=== PATIENT | female | born 1950 | race Caucasian/White ===

== ENCOUNTER 2019-05-19 11:08 | Inpatient (IN) ==
[2019-05-20 06:09] LABS: Basophils % 0.4 %; Eosinophils # 0.2 K/mcL (0.0-0.6); Eosinophils % 2.6 %; Hematocrit 37.8 % (35.3-44.9); Hemoglobin 12.6 g/dL (11.5-15.4); Immature Granulocytes % 0.6 % (0-4); Lymphocytes # 1.5 K/mcL (0.6-4.6); Lymphocytes % 17.2 %; Mean Corpuscular HGB Conc 33.3 g/dL (31.6-35.5); Mean Corpuscular Hemoglobin 29.1 pg (28.0-33.3); Mean Corpuscular Volume 87.3 fL (83.0-100.0); Mean Platelet Volume 10.4 fL (9.4-12.4); Monocytes # 0.6 K/mcL (0.0-1.3); Monocytes % 6.9 %; Neutrophils # 6.1 K/mcL (1.6-8.9); Platelet Count 236 K/mcL (140-400); Red Blood Count 4.33 M/mcL (3.82-4.97); Red Cell Distribution Width 14.2 % (11.5-14.5); Segmented Neutrophils % 72.3 %; White Blood Count 8.5 K/mcL (4.3-11.1)
[2019-05-20] MEDS: *HR* Heparin 5,000 UNIT/ML VIAL SQ SCH ×2 (06:17→17:09)
[2019-05-20 06:37] LABS: Alanine Aminotransferase 119 Units/L (7-52); Albumin 3.5 g/dL (3.5-5.7); Albumin/Globulin Ratio 1.3 (1.1-2.2); Alkaline Phosphatase 77 Units/L (34-104); Aspartate Amino Transferase 49 Units/L (13-39); BUN/Creatinine Ratio 36 (6-26); Blood Urea Nitrogen 26 mg/dL (8-23); Calcium 8.8 mg/dL (8.6-10.3); Carbon Dioxide 23 mEq/L (23-29); Chloride 110 mEq/L (98-107); Globulin 2.7 g/dL (2.4-3.5); Glucose 108 mg/dL (70-105); Magnesium 1.8 mg/dL (1.6-2.6); Osmolality,Calculated 295 (280-300); Potassium 3.8 mEq/L (3.5-5.1); Sodium 140 mEq/L (136-145); Total Protein 6.2 g/dL (6.4-8.9); eGFR For African Americans > 60 (> 60); eGFR For Non-African Americans > 60 (> 60)
[2019-05-20] MEDS: Aspirin 81 MG TAB.CHEW PO SCH (08:08)
[2019-05-20] MEDS: Lisinopril 20 MG TABLET PO SCH (08:09)
--- NOTE | 2019-05-20 12:45 | Internal Med History&Physical ---
Date of Encounter: 05/20/19 Time of Encounter: 12:42 Assessment and Plan (1) Right-sided cerebrovascular accident (CVA) Current visit: Yes Status: Acute No new neurological deficits. PT, OT and ST to eval and treat. Will follow progress. Follow up with neurologist as scheduled. (2) CAD (coronary artery disease) Current visit: Yes Status: Acute Stable. Denies chest pain. Continue current medication. Qualifiers: Coronary Disease-Associated Artery/Lesion type: unspecified vessel or lesion type [place] vs. transplanted heart: [place] heart Associated angina: without angina Qualified Code(s): I25.10 - Atherosclerotic heart disease of [place] coronary artery without angina pectoris (3) Hypertension Current visit: Yes Status: Acute Controlled with current medication. Monitor blood pressure. Qualifiers: Hypertension type: essential hypertension Qualified Code(s): I10 - Essential (primary) hypertension Internal Medicine - H&P: HPI Admitted From: Hospital to Hospital Transfer Plans for Post Hospital Care: Home History of present illness: Ms. Conklin is a 68 year old female admitted to inpatient rehab from [facility] status post right CVA. Patient has history of hypertension and CAD. Was only taking aspirin 81 mg and using a low-sodium diet. Was not taking medication due to insurance and cost issues. Patient developed left-sided weakness with facial droop and did not seek medical treatment until the next morning when she woke up and fell, hitting her face. Workup revealed and included right ICA and subsequent right MCA in right NOHEMY strokes. Patient denies any new neurological symptoms. Denies fever, chills, nausea vomiting or diarrhea. Denies shortness of breath or chest pain. Lives at home alone in a one-story house. His retired. Discussed code status. Patient wishes to remain a full code at this time. States she wants to think about the other options. Past Med Surg Social Fam HX - Past Medical History Medical history: coronary artery disease, CVA, hypertension, myocardial infarction Additional medical history: SD-2001 no stents. CVA-2019 Psychiatric history: no psych history - Past Surgical History Surgical History: no surgical history - Social History Smoking Status: Never smoker Smokeless Tobacco Status: No Alcohol use: none Drug use: none - Family History Mother Hx Family Cardiac Disorders: Yes Internal Medicine - H&P: Meds Aspirin 81 mg PO DAILY 05/19/19 [History] Atorvastatin [Lipitor] 40 mg PO HS 05/19/19 [History] Carvedilol 3.125 mg PO BID 05/19/19 [History] Lisinopril [Zestril] 40 mg PO DAILY 05/19/19 [History] Allergy/AdvReac Type Severity Reaction Status Date / Time codeine Allergy Hives Verified 05/19/19 17:44 All Systems PM: A 10-system review of systems was performed and is negative for pertinent findings except as documented above in the HPI. - Constitutional Constitutional: no chills, no fever(s), no night sweats - EENT Eyes: no change in vision, no discharge, no pain, no photophobia Ears: no ear discharge, no ear pain, no tinnitus Nose, mouth and throat: no dysphagia, no nasal discharge, no neck pain, no sore throat - Cardiovascular Cardiovascular ROS IM: no chest pain, no diaphoresis, no dyspnea, no lightheadedness, no palpitations, no syncope - Respiratory Respiratory: no cough, no dyspnea, no wheezing, no excessive phlegm production - Gastrointestinal Gastrointestinal: no abdominal pain, no diarrhea, no hematemesis, no hematochezia, no melena, no nausea, no vomiting - Genitourinary Genitourinary: no change in urinary stream, no dysuria, no flank pain, no hematuria - Musculoskeletal Musculoskeletal ROS IM: no numbness, no tingling - Integumentary Integumentary IM: no rash, no unusual bruising - Neurological Neurological ROS: no confusion, no convulsions, no focal weakness, no numbness, no tingling, no tremor(s) - Hematologic/Lymphatic Hematologic/Lymphatic: no easy bruising - Constitutional Vitals: Temp Pulse Resp BP Pulse Ox 98.1 F 60 16 125/61 96 05/20/19 08:00 05/20/19 08:00 05/20/19 08:00 05/20/19 08:00 05/20/19 08:00 General appearance: Present: A&O X 3, pleasant, no acute distress, answers questions appropriately Exam: left facial droop - Head Head exam: Present: atraumatic, normocephalic - Eye Eye exam: Present: PERRL, conjuntiva pink, sclera anicteric Pupils: Present: PERRL - Neck Neck exam general surgery: Present: supple, trachea midline. Absent: lymphadenopathy - Respiratory Respiratory exam: Present: CTAB. Absent: accessory muscle use, rales, rhonchi, wheezes - Cardiovascular Cardiovascular exam: Present: RRR, +S1, +S2. Absent: diastolic murmur, gallop, rubs, systolic murmur - GI/Abdominal GI/Abdominal exam: Present: normal bowel sounds, soft, no peritoneal signs. Absent: distended, tenderness - Extremities Exam Extremities exam: Present: warm, radial pulses palpable and symmetrical. Absent: calf tenderness, cyanotic, pedal edema Additional comments: left hemiplegia. does have slight movement through left quad - Neurological Exam Neurological exam: Present: CN II-XII intact, oriented X3, no focal deficits. Absent: pronater drift, facial droop, speech deficit - Skin Skin exam: Present: dry, intact Additional comments: Bruising around left side of cheek and eye. Internal Med - H&P Results - Labs CBC & Chem 7: 05/20/19 05:50 05/20/19 05:50 Labs: Short CBC 05/20/19 Range/Units 05:50 WBC 8.5 (4.3-11.1) K/mcL Hgb 12.6 (11.5-15.4) g/dL Hct 37.8 (35.3-44.9) % Plt Count 236 (140-400) K/mcL Neutrophils # 6.1 (1.6-8.9) K/mcL BMP 05/20/19 05:50 Sodium 140 Potassium 3.8 Chloride 110 H Carbon Dioxide 23 BUN 26 H Creatinine 0.73 Glucose 108 H Calcium 8.8 Liver Function 05/20/19 Range/Units 05:50 Total Bilirubin 1.0 (0.3-1.0) mg/dL AST 49 H (13-39) Units/L ALT 119 H (7-52) Units/L Alkaline Phosphatase 77 (34-104) Units/L Albumin 3.5 (3.5-5.7) g/dL
[2019-05-21] MEDS: *HR* Heparin 5,000 UNIT/ML VIAL SQ SCH ×2 (05:51→17:49)
[2019-05-21] MEDS: Aspirin 81 MG TAB.CHEW PO SCH (09:38)
[2019-05-21] MEDS: Lisinopril 20 MG TABLET PO SCH (09:38)
--- NOTE | 2019-05-21 11:04 | Internal Med Progress Note ---
Date of Encounter: 05/21/19 Time of Encounter: 11:01 - Assessment and plan (1) Right-sided cerebrovascular accident (CVA) Current Visit: Yes Status: Acute Assessment and plan: Patient continues to have left upper extremity remaining flaccid. Left lower extremity shows minimal movement on hip flexure but otherwise remains extremely weak. Right extremities with 5/5 muscle strength. Patient noted to have slight slurred speech during conversation. Continued slight left facial droop. She does participate in therapy and states that she feels she has had a slight increase in strength at left leg. We will continue with current plan of care. (2) CAD (coronary artery disease) Current Visit: Yes Status: Acute Assessment and plan: No acute issues. Patient continues with a slight systolic murmur. Denies any chest discomforts or palpitations. Vital signs are stable. We will continue with current plan of care and medications. Qualifiers: Coronary Disease-Associated Artery/Lesion type: unspecified vessel or lesion type [place] vs. transplanted heart: [place] heart Associated angina: without angina Qualified Code(s): I25.10 - Atherosclerotic heart disease of [place] coronary artery without angina pectoris (3) Hypertension Current Visit: Yes Status: Acute Assessment and plan: Vital signs remained stable. We will continue with a systolic blood pressure goal of less than 160. We will continue with current medications Qualifiers: Hypertension type: essential hypertension Qualified Code(s): I10 - Essential (primary) hypertension - Time Spent With Patient less than 15 minutes - Subjective Interval history: Vision appears relaxed currently denies any discomforts or shortness of breath. Patient states that she feels she has had a slight increase in strength to her left leg which she was able to demonstrate minimal movement approximately. Left upper extremity remains flaccid. Patient denies any other issues and states that therapy has been progressing well. - Constitutional Vitals: Temp Pulse Resp BP Pulse Ox 98.1 F 59 18 155/68 96 05/21/19 09:00 05/21/19 09:00 05/21/19 09:00 05/21/19 09:00 05/21/19 09:00 General appearance: Present: A&O X 3, pleasant, no acute distress, answers que stions appropriately - Head Head exam: Present: atraumatic, normocephalic - Eye Eye exam: Present: PERRL, conjuntiva pink, sclera anicteric Pupils: Present: PERRL - Neck Neck exam general surgery: Present: supple, trachea midline. Absent: lymphadenopathy - Respiratory Respiratory exam: Present: decreased breath sounds, CTAB. Absent: accessory muscle use, rales, rhonchi, wheezes - Cardiovascular Cardiovascular exam: Present: RRR, +S1, +S2, systolic murmur. Absent: diastolic murmur, gallop, rubs - GI/Abdominal GI/Abdominal exam: Present: normal bowel sounds, soft, no peritoneal signs. Absent: distended, tenderness - Extremities Exam Extremities exam: Present: warm, radial pulses palpable and symmetrical. Absent: calf tenderness, cyanotic, pedal edema - Neurological Exam Neurological exam: Present: CN II-XII intact, oriented X3, facial droop, speech deficit. Absent: pronater drift Additional comments: She continues with slight left facial droop. Patient's speech noted to be clear during conversation, but when patient became excited and spoke faster her speech became somewhat slurred. Tongue remains midline. Left upper extremity remains flaccid. Left lower extremity shows 2/5 muscle strength on hip flexure, but otherwise is flaccid. Right extremity showed 5/5 muscle strength. - Skin Skin exam: Present: dry, intact Internal Medicine: Result - Labs CBC & Chem 7: 05/20/19 05:50 05/20/19 05:50 Consult Discharge Plan - Plan Referrals: NONE,PCP [Primary Care Provider] -
--- NOTE | 2019-05-21 14:54 | Psychological Evaluation ---
Date of Encounter: 05/21/19 Time of Encounter: 11:00 History of Present Illness History of present illness: Ms. Conklin is a 68 year old female admitted to inpatient rehab from [facility] status post right CVA. Patient has history of hypertension and CAD. Was only taking aspirin 81 mg and using a low-sodium diet. Was not taking medication due to insurance and cost issues. Patient developed left-sided weakness with facial droop and did not seek medical treatment until the next morning when she woke up and fell, hitting her face. Workup revealed and included right ICA and subsequent right MCA in right NOHEMY strokes. Past Medical History - Psychiatric History Psychiatric history: Reports: no psych history Home Medications and Allergies Aspirin 81 mg PO DAILY 05/19/19 [History] Atorvastatin [Lipitor] 40 mg PO HS 05/19/19 [History] Carvedilol 3.125 mg PO BID 05/19/19 [History] Lisinopril [Zestril] 40 mg PO DAILY 05/19/19 [History] 3 Allergy/AdvReac Type Severity Reaction Status Date / Time codeine Allergy Hives Verified 05/19/19 17:44 Social History - Social History Social History: twice and lives alone in an apartment. Has 4 adult children and 10 grandchildren. 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 Attends latter day regularly and stated her kristin is important. Feels supported with freinds and family. She has noted cahnges in her memory; patience; and slowness of processing. High school graduate. 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 - Tobacco Use Smoking Status: Never smoker - Alcohol Use Alcohol Use: none - Drug Use Drug Use: none Cognitive/Emotional Assessment - Cognitive Ability Attention Span Ability: Unable to Sustain Attention Verbal Communication Ability: Conversational Style Level of Alertness: Alert Orientation: Person, Place, Time Speech Pattern: Appropriate Calculations: Able to spell WORLD backw Additional Findings: Able to repeat 3/3 words immediately and 0/3 after 5min and 2/3 with categorical cue; 4 digits forward and 3 digits backward; knew pres, previous pres, and governor. Unable to perform serial 3's. - Emotional Status Mood Description: Depressed Affect Description: Flat Coping Ability: Verbalizes positive coping skills Additional Findings: Working hard to keep positive but struggling with depression due to effects of CVA. Assessment & Plan - Diagnosis (1) Adjustment disorder with depressed mood - Prognosis Prognosis: Good - Treatment Plan Treatment Plan/Recommendations: Will develop and train coping strategies for mood and acceptance of changes since CVA. Treatment Frequency: weekly Next Session Date: 05/28/19 Procedures - Participants Therapy Participant: Patient - Session Time Session Start Time: 11:00 Session Stop Time: 11:30
[2019-05-22] MEDS: *HR* Heparin 5,000 UNIT/ML VIAL SQ SCH ×2 (05:09→17:36)
[2019-05-22] MEDS: Lisinopril 20 MG TABLET PO SCH (08:40)
[2019-05-22] MEDS: Aspirin 81 MG TAB.CHEW PO SCH (08:41)
--- NOTE | 2019-05-22 10:20 | Internal Med Progress Note ---
Date of Encounter: 05/22/19 Time of Encounter: 10:18 - Assessment and plan (1) Right-sided cerebrovascular accident (CVA) Current Visit: Yes Status: Acute Assessment and plan: Continue PT, OT and ST. Will follow progress. No new neurological deficits at this time. Follow up with neurologist as scheduled. (2) CAD (coronary artery disease) Current Visit: Yes Status: Acute Assessment and plan: Stable. Denies chest pain. Monitor. Continue current medication. Qualifiers: Coronary Disease-Associated Artery/Lesion type: unspecified vessel or lesion type [place] vs. transplanted heart: [place] heart Associated angina: without angina Qualified Code(s): I25.10 - Atherosclerotic heart disease of [place] coronary artery without angina pectoris (3) Hypertension Current Visit: Yes Status: Acute Assessment and plan: Controlled with current medication. Monitor blood pressure. Qualifiers: Hypertension type: essential hypertension Qualified Code(s): I10 - Essential (primary) hypertension - Time Spent With Patient less than 15 minutes - Subjective Interval history: Participating well with therapy. Trunk balance is improving. Maintaining appetite and hydration. Denies any new neurological deficits, fever, chills, nausea vomiting or diarrhea. Denies shortness of breath or chest pain. - Constitutional Vitals: Temp Pulse Resp BP Pulse Ox 97.5 F L 60 16 122/55 99 05/22/19 07:18 05/22/19 07:18 05/22/19 07:18 05/22/19 07:18 05/22/19 07:18 General appearance: Present: A&O X 3, pleasant, no acute distress, answers questions appropriately Exam: Left facial droop - Head Head exam: Present: atraumatic, normocephalic - Eye Eye exam: Present: PERRL, conjuntiva pink, sclera anicteric Pupils: Present: PERRL - Neck Neck exam general surgery: Present: supple, trachea midline. Absent: lymphadenopathy - Respiratory Respiratory exam: Present: CTAB. Absent: accessory muscle use, rales, rhonchi, wheezes - Cardiovascular Cardiovascular exam: Present: RRR, +S1, +S2. Absent: diastolic murmur, gallop, rubs, systolic murmur - GI/Abdominal GI/Abdominal exam: Present: normal bowel sounds, soft, no peritoneal signs. Absent: distended, tenderness - Extremities Exam Extremities exam: Present: warm, radial pulses palpable and symmetrical. Absent: calf tenderness, cyanotic, pedal edema Additional comments: Left hemiplegia - Neurological Exam Neurological exam: Present: CN II-XII intact, oriented X3, no focal deficits. Absent: pronater drift, facial droop, speech deficit - Skin Skin exam: Present: dry, intact Additional comments: Left facial bruising Internal Medicine: Result - Labs CBC & Chem 7: 05/20/19 05:50 05/20/19 05:50 Consult Discharge Plan - Plan Referrals: NONE,PCP [Primary Care Provider] -
[2019-05-22] MEDS: Acetaminophen 325 MG TABLET PO PRN (23:45)
[2019-05-23] MEDS: *HR* Heparin 5,000 UNIT/ML VIAL SQ SCH ×2 (05:13→16:59)
[2019-05-23] MEDS: Lisinopril 20 MG TABLET PO SCH (09:39)
[2019-05-23] MEDS: Aspirin 81 MG TAB.CHEW PO SCH (09:39)
--- NOTE | 2019-05-23 11:24 | Internal Med Progress Note ---
Date of Encounter: 05/23/19 Time of Encounter: 11:22 - Assessment and plan (1) Right-sided cerebrovascular accident (CVA) Current Visit: Yes Status: Acute Assessment and plan: Patient continues to have left upper extremity remaining flaccid. Left lower extremity shows minimal movement on hip flexure but patient increase in strength to her left distal leg. Right extremities with 5/5 muscle strength. Patient noted to have slight slurred speech during conversation. Continued slight left facial droop. She does participate in therapy and states that she feels she has had a slight increase in strength at left leg. We will continue with current plan of care. (2) CAD (coronary artery disease) Current Visit: Yes Status: Acute Assessment and plan: No acute issues. Patient continues with a slight systolic murmur. Denies any chest discomforts or palpitations. Vital signs are stable. We will continue with current plan of care and medications. Qualifiers: Coronary Disease-Associated Artery/Lesion type: unspecified vessel or lesion type [place] vs. transplanted heart: [place] heart Associated angina: without angina Qualified Code(s): I25.10 - Atherosclerotic heart disease of [place] coronary artery without angina pectoris (3) Hypertension Current Visit: Yes Status: Acute Assessment and plan: Vital signs remained stable. We will continue with a systolic blood pressure goal of less than 160. We will continue with current medications Qualifiers: Hypertension type: essential hypertension Qualified Code(s): I10 - Essential (primary) hypertension - Time Spent With Patient less than 15 minutes - Subjective Interval history: Vision appears relaxed currently denies any discomforts or shortness of breath. Patient states that she feels she has had a slight increase in strength to her l eft leg which she was able to demonstrate minimal movement approximately. Left upper extremity remains flaccid. Patient denies any other issues and states that therapy has been progressing well. - Constitutional Vitals: Temp Pulse Resp BP Pulse Ox 98.3 F 54 14 118/57 97 05/23/19 07:00 05/23/19 07:00 05/23/19 07:00 05/23/19 07:00 05/23/19 07:00 General appearance: Present: A&O X 3, pleasant, no acute distress, answers questions appropriately - Head Head exam: Present: atraumatic, normocephalic - Eye Eye exam: Present: PERRL, conjuntiva pink, sclera anicteric Pupils: Present: PERRL - Neck Neck exam general surgery: Present: supple, trachea midline. Absent: lymphadenopathy - Respiratory Respiratory exam: Present: CTAB. Absent: accessory muscle use, rales, rhonchi, wheezes - Cardiovascular Cardiovascular exam: Present: RRR, +S1, +S2. Absent: diastolic murmur, gallop, rubs, systolic murmur - GI/Abdominal GI/Abdominal exam: Present: normal bowel sounds, soft, no peritoneal signs. Absent: distended, tenderness - Extremities Exam Extremities exam: Present: warm, radial pulses palpable and symmetrical. Absent: calf tenderness, cyanotic, pedal edema - Neurological Exam Neurological exam: Present: CN II-XII intact, oriented X3, facial droop, speech deficit Additional comments: Patient continues to have left facial droop and dysarthria. Left upper extremity remains flaccid. Patient shows 2/5 muscle strength on left hip fle xure. Distally has 3/5 muscle strength, except for left dorsiflexion which is at 2/5. Right extremities at 5/5 muscle strength. - Skin Skin exam: Present: dry, intact Internal Medicine: Result - Labs CBC & Chem 7: 05/20/19 05:50 05/20/19 05:50 Consult Discharge Plan - Plan Referrals: NONE,PCP [Primary Care Provider] -
[2019-05-24 04:35] LABS: Bilirubin,Urine Negative (Negative); Blood,Urine Negative (Negative); Clarity,Urine Clear (Clear); Color,Urine Yellow (Yellow); Glucose,Urine (UA) Normal (Normal); Ketones,Urine Negative (Negative); Leukocyte Esterase,Urine Small (Negative); Nitrite,Urine Positive (Negative); Protein,Urine Trace mg/dL (Neg-Trace); Specific Gravity,Urine >= 1.030 (1.010-1.025); Urobilinogen,Urine Normal (Normal)
[2019-05-24 04:44] LABS: Bacteria,Urine Many per hpf (None-Few); Calcium Oxalate Crystals,Urine Present; RBC,Urine 0-3 per hpf (0-3); Squamous Epithelial Cell,Urine Few per lpf (None-Few); Transitional Epi Cells,Urine Few per hpf (None-Few); WBC,Urine 15-30 per hpf (0-3)
[2019-05-24] MEDS: *HR* Heparin 5,000 UNIT/ML VIAL SQ SCH ×2 (05:10→18:08)
[2019-05-24] MEDS: Aspirin 81 MG TAB.CHEW PO SCH (08:57)
[2019-05-24] MEDS: Lisinopril 20 MG TABLET PO SCH (08:57)
[2019-05-24] MEDS: Doxycycline 100 MG CAPSULE PO SCH ×2 (11:41→22:19)
--- NOTE | 2019-05-24 13:21 | Internal Med Progress Note ---
Date of Encounter: 05/24/19 Time of Encounter: 14:50 - Subjective Interval history: dd - Assessment and plan (1) Right-sided cerebrovascular accident (CVA) Current Visit: Yes Status: Acute Assessment and plan: Patient continues to have left upper extremity remaining flaccid due to CVA. L eft lower extremity shows minimal movement on hip flexure but patient increase in strength to her left distal leg. Right extremities with 5/5 muscle strength. Patient noted to have slight slurred speech during conversation. Continued slight left facial droop. She does participate in therapy and states that she feels she has had a slight increase in strength at left leg. We will continue with current plan of care and therapy. (2) CAD (coronary artery disease) Current Visit: Yes Status: Acute Assessment and plan: No acute issues. Patient continues with a slight systolic murmur. Denies any chest discomforts or palpitations. Vital signs are stable. We will continue with current plan of care and medications. Qualifiers: Coronary Disease-Associated Artery/Lesion type: unspecified vessel or lesion type [place] vs. transplanted heart: [place] heart Associated angina: without angina Qualified Code(s): I25.10 - Atherosclerotic heart disease of [place] coronary artery without angina pectoris (3) Hypertension Current Visit: Yes Status: Acute Assessment and plan: Vital signs remained stable. We will continue with a systolic blood pressure goal of less than 160. We will continue with current medications Qualifiers: Hypertension type: essential hypertension Qualified Code(s): I10 - Essential (primary) hypertension - Time Spent With Patient less than 15 minutes - Subjective Interval history: pt currently denies any chest pain or shortness of breath. Patient states that she feels she has had a slight increase in strength to her left leg which she was able to demonstrate minimal movement approximately. Left upper extremity remains flaccid. Patient denies any other issues and states that therapy has been progressing well. - EXAM General appearance: Present: A&O X 3, pleasant, no acute distress, appears comfortable at rest - Head Head exam: Present: atraumatic, normocephalic - Eye Eye exam: Present: PERRL, conjuntiva pink, sclera anicteric Pupils: Present: PERRL - Neck Neck exam general surgery: Present: supple, trachea midline. Absent: lymphadenopathy - Respiratory Respiratory exam: Present: CTAB. Absent: accessory muscle use, rales, rhonchi, wheezes - Cardiovascular Cardiovascular exam: Present: RRR, +S1, +S2. Absent: diastolic murmur, gallop, rubs, systolic murmur - GI/Abdominal GI/Abdominal exam: Present: normal bowel sounds, soft, no peritoneal signs. Absent: distended, tenderness - Extremities Exam Extremities exam: Present: warm, radial pulses palpable and symmetrical. Absent: calf tenderness, cyanotic, pedal edema - Neurological Exam Neurological exam: Present: CN II-XII intact, oriented X3, facial droop, speech deficit Additional comments: Patient continues to have left facial droop and dysarthria. Left upper extremity remains flaccid. Patient shows 2/5 muscle strength on left hip flexure. Distally has 3/5 muscle strength, except for left dorsiflexion which is at 2/5. Right extremities at 5/5 muscle strength. - Skin Skin exam: Present: dry, intact - Constitutional Vitals: Temp Pulse Resp BP Pulse Ox 98.6 F 61 14 130/76 96 05/24/19 08:51 05/24/19 08:51 05/24/19 08:51 05/24/19 08:51 05/24/19 08:51 General appearance: Present: A&O X 3, pleasant, no acute distress, answers questions appropriately Internal Medicine: Result - Labs CBC & Chem 7: 05/26/19 05:40 05/26/19 05:40 Labs: Urine 05/24/19 Range/Units 01:15 Urine Color Yellow (Yellow) Urine Clarity Clear (Clear) Urine pH 6.0 (5.0-8.0) pH Units Ur Specific [place] >= 1.030 H (1.010-1.025) Urine Protein Trace (Neg-Trace) mg/dL Urine Glucose (UA) Normal (Normal) mg/dL Consult Discharge Plan - Plan Referrals: NONE,PCP [Primary Care Provider] -
[2019-05-24] MEDS: Acetaminophen 325 MG TABLET PO PRN (22:19)
[2019-05-25] MEDS: *HR* Heparin 5,000 UNIT/ML VIAL SQ SCH ×2 (05:44→20:35)
[2019-05-25] MEDS: Lisinopril 20 MG TABLET PO SCH (09:28)
[2019-05-25] MEDS: Aspirin 81 MG TAB.CHEW PO SCH (09:28)
[2019-05-25] MEDS: Doxycycline 100 MG CAPSULE PO SCH ×2 (09:29→20:36)
[2019-05-25] MEDS: Acetaminophen 325 MG TABLET PO PRN (20:36)
[2019-05-26] MEDS: *HR* Heparin 5,000 UNIT/ML VIAL SQ SCH ×2 (05:16→17:04)
[2019-05-26 05:59] LABS: Basophils % 0.4 %; Eosinophils # 0.3 K/mcL (0.0-0.6); Eosinophils % 3.8 %; Hematocrit 35.5 % (35.3-44.9); Hemoglobin 11.9 g/dL (11.5-15.4); Immature Granulocytes % 0.4 % (0-4); Lymphocytes # 1.3 K/mcL (0.6-4.6); Lymphocytes % 17.9 %; Mean Corpuscular HGB Conc 33.5 g/dL (31.6-35.5); Mean Corpuscular Hemoglobin 29.5 pg (28.0-33.3); Mean Corpuscular Volume 88.1 fL (83.0-100.0); Mean Platelet Volume 10.1 fL (9.4-12.4); Monocytes # 0.5 K/mcL (0.0-1.3); Neutrophils # 5.1 K/mcL (1.6-8.9); Platelet Count 231 K/mcL (140-400); Red Blood Count 4.03 M/mcL (3.82-4.97); Red Cell Distribution Width 14.3 % (11.5-14.5); Segmented Neutrophils % 70.5 %; White Blood Count 7.2 K/mcL (4.3-11.1)
[2019-05-26 06:12] LABS: BUN/Creatinine Ratio 33 (6-26); Blood Urea Nitrogen 22 mg/dL (8-23); Calcium 8.7 mg/dL (8.6-10.3); Carbon Dioxide 26 mEq/L (23-29); Chloride 109 mEq/L (98-107); Glucose 108 mg/dL (70-105); Magnesium 1.6 mg/dL (1.6-2.6); Osmolality,Calculated 296 (280-300); Potassium 3.8 mEq/L (3.5-5.1); Sodium 141 mEq/L (136-145); eGFR For African Americans > 60 (> 60); eGFR For Non-African Americans > 60 (> 60)
[2019-05-26] MEDS: Doxycycline 100 MG CAPSULE PO SCH ×2 (07:47→21:08)
[2019-05-26] MEDS: Aspirin 81 MG TAB.CHEW PO SCH (07:47)
[2019-05-26] MEDS: Lisinopril 20 MG TABLET PO SCH (07:47)
--- NOTE | 2019-05-26 10:41 | Internal Med Progress Note ---
Date of Encounter: 05/26/19 Time of Encounter: 10:39 - Assessment and plan (1) Right-sided cerebrovascular accident (CVA) Current Visit: Yes Status: Acute Assessment and plan: Patient continues to have left upper extremity remaining flaccid. Left lower extremity shows minimal movement on hip flexure but patient increase in strength to her left distal leg. Right extremities with 5/5 muscle strength. Patient noted to have slight slurred speech during conversation. Continued slight left facial droop. She does participate in therapy and states that she feels she has had a slight increase in strength at left leg. We will continue with current plan of care. (2) CAD (coronary artery disease) Current Visit: Yes Status: Acute Assessment and plan: No acute issues. Patient continues with a slight systolic murmur. Denies any chest discomforts or palpitations. Vital signs are stable. We will continue with current plan of care and medications. Qualifiers: Coronary Disease-Associated Artery/Lesion type: unspecified vessel or lesion type [place] vs. transplanted heart: [place] heart Associated angina: without angina Qualified Code(s): I25.10 - Atherosclerotic heart disease of [place] coronary artery without angina pectoris (3) Hypertension Current Visit: Yes Status: Acute Assessment and plan: Vital signs remained stable. We will continue with a systolic blood pressure goal of less than 160. We will continue with current medications Qualifiers: Hypertension type: essential hypertension Qualified Code(s): I10 - Essential (primary) hypertension (4) UTI (urinary tract infection) Current Visit: Yes Status: Acute Assessment and plan: No acute issues. Patient currently is afebrile. Cultures pending. Patient continues on doxycycline. Qualifiers: Urinary tract infection type: site unspecified Hematuria presence: without hematuria Qualified Code(s): N39.0 - Urinary tract infection, site not specified - Subjective Interval history: Vision appears relaxed currently denies any discomforts or shortness of breath. Patient states that she feels she has had a slight increase in strength to her left leg which she was able to demonstrate minimal movement approximately. Patient denies any other issues and states that therapy has been progressing well. - Constitutional Vitals: Temp Pulse Resp BP Pulse Ox 98.0 F 60 15 154/82 98 05/26/19 07:15 05/26/19 07:15 05/26/19 07:15 05/26/19 07:15 05/26/19 07:15 General appearance: Present: A&O X 3, pleasant, no acute distress, answers questions appropriately - Head Head exam: Present: atraumatic, normocephalic - Eye Eye exam: Present: PERRL, conjuntiva pink, sclera anicteric Pupils: Present: PERRL - Neck Neck exam general surgery: Present: supple, trachea midline. Absent: lymphadenopathy - Respiratory Respiratory exam: Present: CTAB. Absent: accessory muscle use, rales, rhonchi, wheezes - Cardiovascular Cardiovascular exam: Present: RRR, +S1, +S2. Absent: diastolic murmur, gallop, rubs, systolic murmur - GI/Abdominal GI/Abdominal exam: Present: normal bowel sounds, soft, no peritoneal signs. Absent: distended, tenderness - Extremities Exam Extremities exam: Present: warm, radial pulses palpable and symmetrical. Absent: calf tenderness, cyanotic, pedal edema - Neurological Exam Neurological exam: Present: CN II-XII intact, oriented X3, facial droop, speech deficit. Absent: pronater drift Additional comments: Patient continues with slight facial droop and dysarthria. Left upper extremity remains flaccid 0/1. Left lower extremity continues with 3+/5. Patient observed with knee flexion that was able to overcome gravity. Her extremities are 5/5 muscle strength - Skin Skin exam: Present: dry, intact Internal Medicine: Result - Labs CBC & Chem 7: 05/26/19 05:40 05/26/19 05:40 Labs: Short CBC 05/26/19 Range/Units 05:40 WBC 7.2 (4.3-11.1) K/mcL Hgb 11.9 (11.5-15.4) g/dL Hct 35.5 (35.3-44.9) % Plt Count 231 (140-400) K/mcL Neutrophils # 5.1 (1.6-8.9) K/mcL BMP 05/26/19 05:40 Sodium 141 Potassium 3.8 Chloride 109 H Carbon Dioxide 26 BUN 22 Creatinine 0.66 Glucose 108 H Calcium 8.7 Urine 05/24/19 Range/Units 01:15 Urine Color Yellow (Yellow) Urine Clarity Clear (Clear) Urine pH 6.0 (5.0-8.0) pH Units Ur Specific [place] >= 1.030 H (1.010-1.025) Urine Protein Trace (Neg-Trace) mg/dL Urine Glucose (UA) Normal (Normal) mg/dL Consult Discharge Plan - Plan Referrals: NONE,PCP [Primary Care Provider] -
--- NOTE | 2019-05-26 16:06 | Internal Med Progress Note ---
Date of Encounter: 05/25/19 Time of Encounter: 16:50 - Subjective Interval history: dd - Assessment and plan (1) Right-sided cerebrovascular accident (CVA) Current Visit: Yes Status: Acute Assessment and plan: Patient continues to have left upper extremity remaining flaccid due to CVA. L eft lower extremity shows minimal movement on hip flexure but patient increase in strength to her left distal leg. Right extremities with 5/5 muscle strength. Patient noted to have slight slurred speech during conversation. Continued slight left facial droop. She does participate in therapy and states that she feels she has had a slight increase in strength at left leg. We will continue with current plan of care and therapy. (2) CAD (coronary artery disease) Current Visit: Yes Status: Acute Assessment and plan: No acute issues. Patient continues with a slight systolic murmur. Denies any chest discomforts or palpitations. Vital signs are stable. We will continue with current plan of care and medications. Qualifiers: Coronary Disease-Associated Artery/Lesion type: unspecified vessel or lesion type [place] vs. transplanted heart: [place] heart Associated angina: without angina Qualified Code(s): I25.10 - Atherosclerotic heart disease of [place] coronary artery without angina pectoris (3) Hypertension Current Visit: Yes Status: Acute Assessment and plan: Vital signs remained stable. We will continue with a systolic blood pressure goal of less than 160. We will continue with current medications Qualifiers: Hypertension type: essential hypertension Qualified Code(s): I10 - Essential (primary) hypertension - Time Spent With Patient less than 15 minutes - Subjective Interval history: pt currently denies any chest pain or shortness of breath. Patient states that she feels she has had a slight increase in strength to her left leg which she was able to demonstrate minimal movement approximately. Left upper extremity remains flaccid. Patient denies any other issues and states that therapy helps - EXAM General appearance: Present: A&O X 3, pleasant, no acute distress, appears comfortable at rest - Head Head exam: Present: atraumatic, normocephalic - Eye Eye exam: Present: PERRL, conjuntiva pink, sclera anicteric Pupils: Present: PERRL - Neck Neck exam general surgery: Present: supple, trachea midline. Absent: lymphadenopathy - Respiratory Respiratory exam: Present: CTAB. Absent: accessory muscle use, rales, rhonchi, wheezes - Cardiovascular Cardiovascular exam: Present: RRR, +S1, +S2. Absent: diastolic murmur, gallop, rubs, systolic murmur - GI/Abdominal GI/Abdominal exam: Present: normal bowel sounds, soft, no peritoneal signs. Absent: distended, tenderness - Extremities Exam Extremities exam: Present: warm, radial pulses palpable and symmetrical. Absent: calf tenderness, cyanotic, pedal edema - Neurological Exam Neurological exam: Present: CN II-XII intact, oriented X3, facial droop, speech deficit Additional comments: Patient continues to have left facial droop and dysarthria. Left upper extremity remains flaccid. Patient shows 2/5 muscle strength on left hip flexure. Distally has 3/5 muscle strength, except for left dorsiflexion which is at 2/5. Right extremities at 5/5 muscle strength. - Skin Skin exam: Present: dry, intact - Constitutional Vitals: Temp Pulse Resp BP Pulse Ox 98.0 F 60 15 154/82 98 05/26/19 07:15 05/26/19 07:15 05/26/19 07:15 05/26/19 07:15 05/26/19 07:15 General appearance: Present: A&O X 3, pleasant, no acute distress, answers questions appropriately Internal Medicine: Result - Labs CBC & Chem 7: 05/26/19 05:40 05/26/19 05:40 Labs: Short CBC 05/26/19 Range/Units 05:40 WBC 7.2 (4.3-11.1) K/mcL Hgb 11.9 (11.5-15.4) g/dL Hct 35.5 (35.3-44.9) % Plt Count 231 (140-400) K/mcL Neutrophils # 5.1 (1.6-8.9) K/mcL BMP 05/26/19 05:40 Sodium 141 Potassium 3.8 Chloride 109 H Carbon Dioxide 26 BUN 22 Creatinine 0.66 Glucose 108 H Calcium 8.7 Consult Discharge Plan - Plan Referrals: NONE,PCP [Primary Care Provider] -
[2019-05-26] MEDS: Acetaminophen 325 MG TABLET PO PRN (21:08)
[2019-05-27] MEDS: *HR* Heparin 5,000 UNIT/ML VIAL SQ SCH ×2 (06:11→17:09)
[2019-05-27] MEDS: Doxycycline 100 MG CAPSULE PO SCH ×2 (08:20→20:56)
[2019-05-27] MEDS: Lisinopril 20 MG TABLET PO SCH (08:20)
[2019-05-27] MEDS: Aspirin 81 MG TAB.CHEW PO SCH (08:21)
--- NOTE | 2019-05-27 10:32 | Internal Med Progress Note ---
Date of Encounter: 05/27/19 Time of Encounter: 10:30 - Assessment and plan (1) Right-sided cerebrovascular accident (CVA) Current Visit: Yes Status: Acute Assessment and plan: Continue PT, OT and ST. Will follow progress. No new neurological deficits at this time. Follow up with neurologist as scheduled. (2) CAD (coronary artery disease) Current Visit: Yes Status: Acute Assessment and plan: Stable. Denies chest pain. Monitor. Continue current medication. Qualifiers: Coronary Disease-Associated Artery/Lesion type: unspecified vessel or lesion type [place] vs. transplanted heart: [place] heart Associated angina: without angina Qualified Code(s): I25.10 - Atherosclerotic heart disease of [place] coronary artery without angina pectoris (3) Hypertension Current Visit: Yes Status: Acute Assessment and plan: Controlled with current medication. Monitor blood pressure. Qualifiers: Hypertension type: essential hypertension Qualified Code(s): I10 - Essential (primary) hypertension (4) UTI (urinary tract infection) Current Visit: Yes Status: Acute Assessment and plan: denies urinary symptoms. continue atb, afebrile. Qualifiers: Urinary tract infection type: site unspecified Hematuria presence: without hematuria Qualified Code(s): N39.0 - Urinary tract infection, site not spe cified - Time Spent With Patient less than 15 minutes - Subjective Interval history: Participating well with therapy. has been working on standing frame. Trunk balance is improving. Maintaining appetite and hydration. Denies any new neurological deficits, fever, chills, nausea vomiting or diarrhea. Denies shortness of breath or chest pain. - Constitutional Vitals: Temp Pulse Resp BP Pulse Ox 98.0 F 59 15 150/71 97 05/27/19 08:01 05/27/19 08:01 05/27/19 08:01 05/27/19 08:01 05/27/19 08:01 General appearance: Present: A&O X 3, pleasant, no acute distress, answers questions appropriately Exam: left facial droop - Head Head exam: Present: atraumatic, normocephalic - Eye Eye exam: Present: PERRL, conjuntiva pink, sclera anicteric Pupils: Present: PERRL - Neck Neck exam general surgery: Present: supple, trachea midline. Absent: lymphadenopathy - Respiratory Respiratory exam: Present: CTAB. Absent: accessory muscle use, rales, rhonchi, wheezes - Cardiovascular Cardiovascular exam: Present: RRR, +S1, +S2. Absent: diastolic murmur, gallop, rubs, systolic murmur - GI/Abdominal GI/Abdominal exam: Present: normal bowel sounds, soft, no peritoneal signs. Absent: distended, tenderness - Extremities Exam Extremities exam: Present: warm, radial pulses palpable and symmetrical. Absent: calf tenderness, cyanotic, pedal edema Additional comments: LUE flaccid, LLL strength 2/5 - Neurological Exam Neurological exam: Present: CN II-XII intact, oriented X3, no focal deficits. Absent: pronater drift, facial droop, speech deficit - Skin Skin exam: Present: dry, intact Internal Medicine: Result - Labs CBC & Chem 7: 05/26/19 05:40 05/26/19 05:40 Consult Discharge Plan - Plan Referrals: NONE,PCP [Primary Care Provider] -
[2019-05-27] MEDS: Acetaminophen 325 MG TABLET PO PRN (20:56)
[2019-05-28] MEDS: *HR* Heparin 5,000 UNIT/ML VIAL SQ SCH ×2 (05:30→17:44)
[2019-05-28] MEDS: Lisinopril 20 MG TABLET PO SCH (09:25)
[2019-05-28] MEDS: Doxycycline 100 MG CAPSULE PO SCH ×2 (09:25→22:06)
[2019-05-28] MEDS: Aspirin 81 MG TAB.CHEW PO SCH (09:25)
[2019-05-28] MEDS: Acetaminophen 325 MG TABLET PO PRN ×2 (09:29→22:04)
--- NOTE | 2019-05-28 12:57 | Internal Med Progress Note ---
Date of Encounter: 05/28/19 Time of Encounter: 12:55 - Assessment and plan (1) Right-sided cerebrovascular accident (CVA) Current Visit: Yes Status: Acute Assessment and plan: Patient continues to have left upper extremity remaining flaccid. Left lower extremity shows minimal movement on hip flexure but patient increase in strength to her left distal leg. Right extremities with 5/5 muscle strength. Patient noted to have slight slurred speech during conversation. Continued slight left facial droop. She does participate in therapy and states that she feels she has had a slight increase in strength at left leg. Patient has complaint of left shoulder pain, which is likely secondary to the weight of her flaccid left arm. No deformity or obvious injury noted to the left shoulder. No tenderness on palpation. Have physical therapy evaluate her left shoulder. Pain increases patient may possibly need a sling for left arm. We will continue with current plan of care. (2) CAD (coronary artery disease) Current Visit: Yes Status: Acute Assessment and plan: No acute issues. Patient continues with a slight systolic murmur. Denies any chest discomforts or palpitations. Vital signs are stable. We will continue with current plan of care and medications. Qualifiers: Coronary Disease-Associated Artery/Lesion type: unspecified vessel or lesion type [place] vs. transplanted heart: [place] heart Associated angina: without angina Qualified Code(s): I25.10 - Atherosclerotic heart disease of [place] coronary artery without angina pectoris (3) Hypertension Current Visit: Yes Status: Acute Assessment and plan: Vital signs remained stable. We will continue with a systolic blood pressure goal of less than 160. We will continue with current medications Qualifiers: Hypertension type: essential hypertension Qualified Code(s): I10 - Essential (primary) hypertension (4) UTI (urinary tract infection) Current Visit: Yes Status: Acute Assessment and plan: No acute issues. Patient currently is afebrile. Cultures pending. Patient continues on doxycycline. Qualifiers: Urinary tract infection type: site unspecified Hematuria presence: without hematuria Qualified Code(s): N39.0 - Urinary tract infection, site not specified - Time Spent With Patient less than 15 minutes - Subjective Interval history: Vision appears relaxed currently denies any discomforts or shortness of breath. Patient states that she feels she has had a slight increase in strength to her left leg which she was able to demonstrate minimal movement approximately. Patient denies any other issues and states that therapy has been progressing well. Therapy today reports patient has had increased muscle tension to her left extremities making passive range of motion difficult. Patient has also complained of slight discomfort to her left shoulder, but denies any tenderness on palpation. - Constitutional Vitals: Temp Pulse Resp BP Pulse Ox 97.7 F 59 16 133/73 97 05/28/19 07:20 05/28/19 07:20 05/28/19 07:20 05/28/19 07:20 05/28/19 07:20 General appearance: Present: A&O X 3, pleasant, no acute distress, answers questions appropriately - Head Head exam: Present: atraumatic, normocephalic - Eye Eye exam: Present: PERRL, conjuntiva pink, sclera anicteric Pupils: Present: PERRL - Neck Neck exam general surgery: Present: supple, trachea midline. Absent: lymphadenopathy - Respiratory Respiratory exam: Present: CTAB. Absent: accessory muscle use, rales, rhonchi, wheezes - Cardiovascular Cardiovascular exam: Present: RRR, +S1, +S2. Absent: diastolic murmur, gallop, rubs, systolic murmur - GI/Abdominal GI/Abdominal exam: Present: normal bowel sounds, soft, no peritoneal signs. Absent: distended, tenderness - Extremities Exam Extremities exam: Present: warm, radial pulses palpable and symmetrical. Absent: calf tenderness, cyanotic, pedal edema Additional comments: Left shoulder shows no deformity or obvious injuries. No tenderness on palpation. No edema - Neurological Exam Neurological exam: Present: CN II-XII intact, oriented X3, facial droop, speech deficit. Absent: pronater drift Additional comments: Patient continues with left facial droop and dysarthria. Left upper extremity remains flaccid. Left lower extremity shows 3/5 muscle strength. Right extremities with 5/5 muscle strength. - Skin Skin exam: Present: dry, intact Internal Medicine: Result - Labs CBC & Chem 7: 05/26/19 05:40 05/26/19 05:40 Consult Discharge Plan - Plan Referrals: NONE,PCP [Primary Care Provider] -
--- NOTE | 2019-05-28 14:05 | Rehab Psychology Progress Note ---
Date of Encounter: 05/28/19 Time of Encounter: 11:00 Subjective - Patient Report Patient Report: Stated she had a rough night last night due to pain in her left shoulder. Feeling a little depressed. Working on focusing on one day at a time. - Symptoms Symptoms: Flat affect. Minimal eye contact. Objective - WHODAS Functional Impairment Concentration, Problem-solving, Communication: Mild Social Functioning: Mild - Comments Functional Status Comments: Expressed concerns about living independently due to mobility issues. Concerned with driving and discussed that was not going to occur for several months. - Mental Status Mental Status Changes: OX3 Assessment and Plan - Diagnosis (1) Adjustment disorder with depressed mood - Response to Treatment Response to Treatment: Improved - Prognosis Prognosis: Good - Treatment Plan Treatment Plan Recommendations: Continue Current Plan/Goals Next Session Date: 06/04/19 Procedures - Intervention Interventions: Cognitive/Behavioral Therapy - Modality Modality: Psychotherapy 30 minutes - Participants Therapy Participant: Patient - Session Time Session Start Time: 11:00 Session Stop Time: 11:30
[2019-05-28] MEDS: tiZANidine 4 MG TABLET PO PRN (22:08)
[2019-05-29] MEDS: *HR* Heparin 5,000 UNIT/ML VIAL SQ SCH ×2 (05:55→17:49)
[2019-05-29] MEDS: Aspirin 81 MG TAB.CHEW PO SCH (09:57)
[2019-05-29] MEDS: Lisinopril 20 MG TABLET PO SCH (09:57)
[2019-05-29] MEDS: tiZANidine 4 MG TABLET PO PRN ×2 (09:58→21:33)
[2019-05-29] MEDS: Doxycycline 100 MG CAPSULE PO SCH ×2 (09:58→21:33)
--- NOTE | 2019-05-29 11:24 | Internal Med Progress Note ---
Date of Encounter: 05/29/19 Time of Encounter: 11:22 - Assessment and plan (1) Right-sided cerebrovascular accident (CVA) Current Visit: Yes Status: Acute Assessment and plan: Patient continues to have left upper extremity remaining flaccid. Left lower extremity shows minimal movement on hip flexure but patient increase in strength to her left distal leg. Right extremities with 5/5 muscle strength. Patient noted to have slight slurred speech during conversation. Continued slight left facial droop. She does participate in therapy and states that she feels she has had a slight increase in strength at left leg. Patient has complaint of left shoulder pain, which is likely secondary to the weight of her flaccid left arm. No deformity or obvious injury noted to the left shoulder. No tenderness on palpation. Have physical therapy evaluate her left shoulder. Pain increases patient may possibly need a sling for left arm. We will continue with current plan of care. (2) CAD (coronary artery disease) Current Visit: Yes Status: Acute Assessment and plan: No acute issues. Patient continues with a slight systolic murmur. Denies any chest discomforts or palpitations. Vital signs are stable. We will continue with current plan of care and medications. Qualifiers: Coronary Disease-Associated Artery/Lesion type: unspecified vessel or lesion type [place] vs. transplanted heart: [place] heart Associated angina: without angina Qualified Code(s): I25.10 - Atherosclerotic heart disease of [place] coronary artery without angina pectoris (3) Hypertension Current Visit: Yes Status: Acute Assessment and plan: Vital signs remained stable. We will continue with a systolic blood pressure goal of less than 160. We will continue with current medications Qualifiers: Hypertension type: essential hypertension Qualified Code(s): I10 - Essential (primary) hypertension (4) UTI (urinary tract infection) Current Visit: Yes Status: Acute Assessment and plan: No acute issues. Patient currently is afebrile. Cultures pending. Patient continues on doxycycline. Qualifiers: Urinary tract infection type: site unspecified Hematuria presence: without hematuria Qualified Code(s): N39.0 - Urinary tract infection, site not specified - Time Spent With Patient less than 15 minutes - Subjective Interval history: Vision appears relaxed currently denies any discomforts or shortness of breath. Patient states that she feels she has had a slight increase in strength to her left leg which she was able to demonstrate minimal movement approximately. Patient denies any other issues and states that therapy has been progressing well. Therapy today reports patient has had increased muscle tension to her left extremities making passive range of motion difficult. Patient has also complained of slight discomfort to her left shoulder, but denies any tenderness on palpation. Patient states that her pain to her left shoulder has improved somewhat today - Constitutional Vitals: Temp Pulse Resp BP Pulse Ox 98.7 F 55 16 144/76 97 05/29/19 07:54 05/29/19 07:54 05/29/19 07:54 05/29/19 07:54 05/29/19 07:54 General appearance: Present: A&O X 3, pleasant, no acute distress, answers questions appropriately - Head Head exam: Present: atraumatic, normocephalic - Eye Eye exam: Present: PERRL, conjuntiva pink, sclera anicteric Pupils: Present: PERRL - Neck Neck exam general surgery: Present: supple, trachea midline. Absent: lymphadenopathy - Respiratory Respiratory exam: Present: CTAB. Absent: accessory muscle use, rales, rhonchi, wheezes - Cardiovascular Cardiovascular exam: Present: RRR, +S1, +S2. Absent: diastolic murmur, gallop, rubs, systolic murmur - GI/Abdominal GI/Abdominal exam: Present: normal bowel sounds, soft, no peritoneal signs. Absent: distended, tenderness - Extremities Exam Extremities exam: Present: warm, radial pulses palpable and symmetrical. Absent: calf tenderness, cyanotic, pedal edema Additional comments: Patient with complaints of pain to her left shoulder. No deformity or injury noted. Denies tenderness. - Neurological Exam Neurological exam: Present: CN II-XII intact, oriented X3, facial droop, speech deficit. Absent: pronater drift Additional comments: Patient continues with facial droop and dysarthria. Left upper extremity remains flaccid. Left lower extremity at 3/5 muscle strength. Right extremities at 5/5 muscle strength - Skin Skin exam: Present: dry, intact Internal Medicine: Result - Labs CBC & Chem 7: 05/26/19 05:40 05/26/19 05:40 Consult Discharge Plan - Plan Referrals: NONE,PCP [Primary Care Provider] -
[2019-05-29] MEDS: Mag Hydrox/Al Hydrox/Simeth 30 ML UDC PO PRN (14:39)
[2019-05-29] MEDS: Famotidine 20 MG TABLET PO SCH (21:34)
[2019-05-30] MEDS: *HR* Heparin 5,000 UNIT/ML VIAL SQ SCH ×2 (04:57→17:20)
[2019-05-30] MEDS: Doxycycline 100 MG CAPSULE PO SCH ×2 (08:03→21:44)
[2019-05-30] MEDS: Lisinopril 20 MG TABLET PO SCH (08:03)
[2019-05-30] MEDS: tiZANidine 4 MG TABLET PO PRN (08:03)
[2019-05-30] MEDS: Aspirin 81 MG TAB.CHEW PO SCH (08:03)
[2019-05-30] MEDS: Famotidine 20 MG TABLET PO SCH ×2 (08:04→21:44)
--- NOTE | 2019-05-30 11:13 | Internal Med Progress Note ---
Date of Encounter: 05/30/19 Time of Encounter: 11:10 - Assessment and plan (1) Right-sided cerebrovascular accident (CVA) Current Visit: Yes Status: Acute Assessment and plan: Patient continues to have left upper extremity remaining mostly flaccid, but noted muscle twitch. Left lower extremity shows minimal movement on hip flexure but patient increase in strength to her left distal leg. Right extremities with 5/5 muscle strength. Patient noted to have slight slurred speech during conversation. Continued slight left facial droop. She does participate in therapy and states that she feels she has had a slight increase in strength at left leg. Patient has complaint of left shoulder pain, which is likely secondary to the weight of her flaccid left arm. No deformity or obvious injury noted to the left shoulder. No tenderness on palpation. Have physical therapy evaluate her left shoulder. Pain increases patient may possibly need a sling for left arm. Patient was started on Zanaflex yesterday when necessary due to increased muscle tone on the left extremities, which has made therapy difficult. Minimal effect has been noted and will change her Zanaflex to a scheduled dose. We will continue with current plan of care. (2) CAD (coronary artery disease) Current Visit: Yes Status: Acute Assessment and plan: No acute issues. Patient continues with a slight systolic murmur. Denies any chest discomforts or palpitations. Vital signs are stable. We will continue with current plan of care and medications. Qualifiers: Coronary Disease-Associated Artery/Lesion type: unspecified vessel or lesion type [place] vs. transplanted heart: [place] heart Associated angina: without angina Qualified Code(s): I25.10 - Atherosclerotic heart disease of [place] coronary artery without angina pectoris (3) Hypertension Current Visit: Yes Status: Acute Assessment and plan: Vital signs remained stable. We will continue with a systolic blood pressure goal of less than 160. We will continue with current medications Qualifiers: Hypertension type: essential hypertension Qualified Code(s): I10 - Essential (primary) hypertension (4) UTI (urinary tract infection) Current Visit: Yes Status: Acute Assessment and plan: No acute issues. Patient currently is afebrile. Cultures pending. Patient continues on doxycycline. Qualifiers: Urinary tract infection type: site unspecified Hematuria presence: without hematuria Qualified Code(s): N39.0 - Urinary tract infection, site not spec ified - Time Spent With Patient less than 15 minutes - Subjective Interval history: Appears relaxed currently denies any discomforts or shortness of breath. Patient states that she feels she has had a slight increase in strength to her left leg which she was able to demonstrate minimal movement approximately. Patient denies any other issues and states that therapy has been progressing well. Therapy today reports patient continues with increased muscle tension to her left extremities making passive range of motion difficult. Started on Zanaflex yesterday prn, but has been ineffective. Patient has also complained of slight discomfort to her left shoulder, but denies any tenderness on palpation. Patient states that her pain to her left shoulder has improved somewhat today - Constitutional Vitals: Temp Pulse Resp BP Pulse Ox 98.4 F 62 15 152/65 94 05/30/19 10:11 05/30/19 10:11 05/30/19 10:11 05/30/19 10:11 05/30/19 10:11 General appearance: Present: A&O X 3, pleasant, no acute distress, answers questions appropriately - Head Head exam: Present: atraumatic, normocephalic - Eye Eye exam: Present: PERRL, conjuntiva pink, sclera anicteric Pupils: Present: PERRL - Neck Neck exam general surgery: Present: supple, trachea midline. Absent: lymphadenopathy - Respiratory Respiratory exam: Present: CTAB. Absent: accessory muscle use, rales, rhonchi, wheezes - Cardiovascular Cardiovascular exam: Present: RRR, +S1, +S2. Absent: diastolic murmur, gallop, rubs, systolic murmur - GI/Abdominal GI/Abdominal exam: Present: normal bowel sounds, soft, no peritoneal signs. Absent: distended, tenderness - Extremities Exam Extremities exam: Present: warm, radial pulses palpable and symmetrical. Absent: calf tenderness, cyanotic, pedal edema - Neurological Exam Neurological exam: Present: CN II-XII intact, oriented X3, facial droop, speech deficit. Absent: pronater drift Additional comments: Patient continues with left facial droop and dysarthria. Left upper extremity at 1/5 muscle strength. Left lower extremity and 3/5 muscle strength. Right extremities at 5/5 muscle strength. - Skin Skin exam: Present: dry, intact Internal Medicine: Result - Labs CBC & Chem 7: 05/26/19 05:40 05/26/19 05:40 Consult Discharge Plan - Plan Referrals: NONE,PCP [Primary Care Provider] -
[2019-05-30] MEDS ORDERED: tiZANidine 4 MG TABLET PO SCH (13:00)
[2019-05-30] MEDS: tiZANidine 4 MG TABLET PO SCH ×2 (15:00→21:44)
[2019-05-31] MEDS: *HR* Heparin 5,000 UNIT/ML VIAL SQ SCH ×2 (05:08→17:44)
[2019-05-31] MEDS: tiZANidine 4 MG TABLET PO SCH ×3 (08:43→22:04)
[2019-05-31] MEDS: Doxycycline 100 MG CAPSULE PO SCH ×2 (08:43→22:05)
[2019-05-31] MEDS: Aspirin 81 MG TAB.CHEW PO SCH (08:43)
[2019-05-31] MEDS: Lisinopril 20 MG TABLET PO SCH (08:43)
[2019-05-31] MEDS: Famotidine 20 MG TABLET PO SCH ×2 (08:44→22:04)
--- NOTE | 2019-05-31 10:20 | Internal Med Progress Note ---
Date of Encounter: 05/31/19 Time of Encounter: 10:18 - Assessment and plan (1) Right-sided cerebrovascular accident (CVA) Current Visit: Yes Status: Acute Assessment and plan: She is continuing therapy and progressing slowly. (2) CAD (coronary artery disease) Current Visit: Yes Status: Acute Assessment and plan: Stable, without signs or symptoms. Qualifiers: Coronary Disease-Associated Artery/Lesion type: unspecified vessel or lesion type [place] vs. transplanted heart: [place] heart Associated angina: without angina Qualified Code(s): I25.10 - Atherosclerotic heart disease of [place] coronary artery without angina pectoris (3) Hypertension Current Visit: Yes Status: Acute Assessment and plan: Controlled. Qualifiers: Hypertension type: essential hypertension Qualified Code(s): I10 - Essential (primary) hypertension (4) Adjustment disorder with depressed mood Current Visit: Yes Status: Acute Assessment and plan: Reactive. - Subjective Interval history: Patient states that she is doing well with therapy. She is pleased that she is developing some sensation in her left foot. Otherwise, she is unchanged. Patient has no complaint of chest discomfort, dyspnea, orthopnea, palpitations, nausea or vomiting, constipation or diarrhea, other changes in bowel habits, difficulty with urination, rash or itching, or other new complaints, except as mentioned above. Review of systems is otherwise negative. I discussed management of patient's care with nursing staff. - Constitutional Vitals: Temp Pulse Resp BP Pulse Ox 98.6 F 58 22 128/69 95 05/31/19 07:29 05/31/19 07:29 05/31/19 07:29 05/31/19 07:29 05/31/19 07:29 Exam: Examination: (Except as mentioned above): General: In no apparent distress. Alert and oriented 3. Nondiaphoretic. Head: Atraumatic and normocephalic. Respiratory: No use of accessory muscles. Lungs are clear throughout. Normal airflow. Cardiovascular: Regular rate and rhythm without murmur appreciated. Abdomen: Bowel sounds are normal. No hepatosplenomegaly mass or tenderness appreciated. Obese and therefore difficult to palpate deeply. Extremities: No cyanosis clubbing or edema. Skin: Warm and non-diaphoretic with no new lesions noted. Internal Medicine: Result - Labs CBC & Chem 7: 05/26/19 05:40 05/26/19 05:40 Consult Discharge Plan - Plan Referrals: NONE,PCP [Primary Care Provider] -
[2019-05-31] MEDS: Acetaminophen 325 MG TABLET PO PRN (22:04)
[2019-06-01] MEDS: *HR* Heparin 5,000 UNIT/ML VIAL SQ SCH ×2 (05:36→17:58)
[2019-06-01] MEDS: Aspirin 81 MG TAB.CHEW PO SCH (08:29)
[2019-06-01] MEDS: Lisinopril 20 MG TABLET PO SCH (08:29)
[2019-06-01] MEDS: tiZANidine 4 MG TABLET PO SCH ×3 (08:29→20:11)
[2019-06-01] MEDS: Famotidine 20 MG TABLET PO SCH ×2 (08:29→20:12)
[2019-06-01] MEDS: Doxycycline 100 MG CAPSULE PO SCH (08:31)
--- NOTE | 2019-06-01 13:20 | Internal Med Progress Note ---
Date of Encounter: 06/01/19 Time of Encounter: 13:19 - Assessment and plan (1) Right-sided cerebrovascular accident (CVA) Current Visit: Yes Status: Acute Assessment and plan: We will continue as she is improving with therapies. (2) CAD (coronary artery disease) Current Visit: Yes Status: Acute Assessment and plan: Stable without signs or symptoms. Qualifiers: Coronary Disease-Associated Artery/Lesion type: unspecified vessel or lesion type [place] vs. transplanted heart: [place] heart Associated angina: without angina Qualified Code(s): I25.10 - Atherosclerotic heart disease of [place] coronary artery without angina pectoris (3) Hypertension Current Visit: Yes Status: Acute Assessment and plan: Controlled. Qualifiers: Hypertension type: essential hypertension Qualified Code(s): I10 - Essential (primary) hypertension (4) Adjustment disorder with depressed mood Current Visit: Yes Status: Acute Assessment and plan: Reactive and seems to be improving, clinically. - Subjective Interval history: Patient states she has no problems. She is glad to be off therapy for a day but is looking forward to working on it again tomorrow. Bowels and bladder are functioning well. She is getting more response from her left lower extremity. Patient has no complaint of chest discomfort, dyspnea, orthopnea, palpitations, nausea or vomiting, constipation or diarrhea, other changes in bowel habits, difficulty with urination, rash or itching, or other new complaints, except as mentioned above. Review of systems is otherwise negative. I discussed management of patient's care with nursing staff. - Constitutional Vitals: Temp Pulse Resp BP Pulse Ox 98.6 F 62 16 156/67 98 06/01/19 07:10 06/01/19 07:10 06/01/19 07:10 06/01/19 07:10 06/01/19 07:10 Exam: Examination: (Except as mentioned above): General: In no apparent distress. Alert and oriented 3. Nondiaphoretic. Head: Atraumatic and normocephalic. Respiratory: No use of accessory muscles. Lungs are clear throughout. Normal airflow. Cardiovascular: Regular rate and rhythm without murmur appreciated. Abdomen: Bowel sounds are normal. No hepatosplenomegaly mass or tenderness appreciated. Obese and therefore difficult to palpate deeply. Patient is examined upright in chair and this also limits exam. Extremities: No cyanosis clubbing or edema. Skin: Warm and non-diaphoretic with no new lesions noted. Neurologic: Still left dense hemiparesis in the upper extremity with left facial droop but markedly improved, including versus yesterday, left lower extremity function. Internal Medicine: Result - Labs CBC & Chem 7: 05/26/19 05:40 05/26/19 05:40 Consult Discharge Plan - Plan Referrals: NONE,PCP [Primary Care Provider] -
[2019-06-02] MEDS: *HR* Heparin 5,000 UNIT/ML VIAL SQ SCH ×2 (05:34→17:29)
[2019-06-02 05:36] LABS: Basophils % 0.3 %; Eosinophils # 0.2 K/mcL (0.0-0.6); Eosinophils % 3.2 %; Hematocrit 38.6 % (35.3-44.9); Hemoglobin 12.7 g/dL (11.5-15.4); Immature Granulocytes % 0.2 % (0-4); Lymphocytes # 1.4 K/mcL (0.6-4.6); Lymphocytes % 21.3 %; Mean Corpuscular HGB Conc 32.9 g/dL (31.6-35.5); Mean Corpuscular Hemoglobin 29.4 pg (28.0-33.3); Mean Corpuscular Volume 89.4 fL (83.0-100.0); Mean Platelet Volume 9.6 fL (9.4-12.4); Monocytes # 0.4 K/mcL (0.0-1.3); Monocytes % 5.7 %; Neutrophils # 4.6 K/mcL (1.6-8.9); Platelet Count 207 K/mcL (140-400); Red Blood Count 4.32 M/mcL (3.82-4.97); Red Cell Distribution Width 14.5 % (11.5-14.5); Segmented Neutrophils % 69.3 %; White Blood Count 6.6 K/mcL (4.3-11.1)
[2019-06-02 05:51] LABS: BUN/Creatinine Ratio 30 (6-26); Blood Urea Nitrogen 22 mg/dL (8-23); Carbon Dioxide 27 mEq/L (23-29); Chloride 109 mEq/L (98-107); Glucose 102 mg/dL (70-105); Magnesium 1.8 mg/dL (1.6-2.6); Osmolality,Calculated 298 (280-300); Potassium 4.1 mEq/L (3.5-5.1); Sodium 142 mEq/L (136-145); eGFR For African Americans > 60 (> 60); eGFR For Non-African Americans > 60 (> 60)
[2019-06-02] MEDS: Aspirin 81 MG TAB.CHEW PO SCH (08:21)
[2019-06-02] MEDS: Famotidine 20 MG TABLET PO SCH ×2 (08:21→20:51)
[2019-06-02] MEDS: Lisinopril 20 MG TABLET PO SCH (08:21)
[2019-06-02] MEDS: tiZANidine 4 MG TABLET PO SCH ×3 (08:22→20:50)
--- NOTE | 2019-06-02 10:47 | Internal Med Progress Note ---
Date of Encounter: 06/02/19 Time of Encounter: 10:45 - Assessment and plan (1) Right-sided cerebrovascular accident (CVA) Current Visit: Yes Status: Acute Assessment and plan: Continue PT, OT and ST. Will follow progress. No new neurological deficits at this time. Follow up with neurologist as scheduled. (2) CAD (coronary artery disease) Current Visit: Yes Status: Acute Assessment and plan: Stable. Denies chest pain. Monitor. Continue current medication. Qualifiers: Coronary Disease-Associated Artery/Lesion type: unspecified vessel or lesion type [place] vs. transplanted heart: [place] heart Associated angina: without angina Qualified Code(s): I25.10 - Atherosclerotic heart disease of [place] coronary artery without angina pectoris (3) Hypertension Current Visit: Yes Status: Acute Assessment and plan: Controlled with current medication. Monitor blood pressure. Qualifiers: Hypertension type: essential hypertension Qualified Code(s): I10 - Essential (primary) hypertension - Time Spent With Patient less than 15 minutes - Subjective Interval history: Participating well with therapy. has been working on standing frame. Trunk balance continues to improve. Maintaining appetite and hydration. Denies any new neurological deficits, fever, chills, nausea vomiting or diarrhea. Denies shortness of breath or chest pain. - Constitutional Vitals: Temp Pulse Resp BP Pulse Ox 97.8 F 56 16 166/71 95 06/02/19 06:45 06/02/19 06:45 06/02/19 06:45 06/02/19 06:45 06/02/19 06:45 General appearance: Present: A&O X 3, pleasant, no acute distress, answers questions appropriately - Head Head exam: Present: atraumatic, normocephalic - Eye Eye exam: Present: PERRL, conjuntiva pink, sclera anicteric Pupils: Present: PERRL - Neck Neck exam general surgery: Present: supple, trachea midline. Absent: lymphadenopathy - Respiratory Respiratory exam: Present: CTAB. Absent: accessory muscle use, rales, rhonchi, wheezes - Cardiovascular Cardiovascular exam: Present: RRR, +S1, +S2. Absent: diastolic murmur, gallop, rubs, systolic murmur - GI/Abdominal GI/Abdominal exam: Present: normal bowel sounds, soft, no peritoneal signs. Absent: distended, tenderness - Extremities Exam Extremities exam: Present: warm, radial pulses palpable and symmetrical. Absent: calf tenderness, cyanotic, pedal edema - Neurological Exam Neurological exam: Present: CN II-XII intact, oriented X3, no focal deficits. Absent: pronater drift, facial droop, speech deficit - Skin Skin exam: Present: dry, intact Internal Medicine: Result - Labs CBC & Chem 7: 06/02/19 05:25 06/02/19 05:25 Labs: Short CBC 06/02/19 Range/Units 05:25 WBC 6.6 (4.3-11.1) K/mcL Hgb 12.7 (11.5-15.4) g/dL Hct 38.6 (35.3-44.9) % Plt Count 207 (140-400) K/mcL Neutrophils # 4.6 (1.6-8.9) K/mcL BMP 06/02/19 05:25 Sodium 142 Potassium 4.1 Chloride 109 H Carbon Dioxide 27 BUN 22 Creatinine 0.73 Glucose 102 Calcium 9.0 Consult Discharge Plan - Plan Referrals: NONE,PCP [Primary Care Provider] -
[2019-06-02] MEDS ORDERED: tiZANidine 4 MG TABLET PO PRN (12:50)
[2019-06-02] MEDS: Acetaminophen 325 MG TABLET PO PRN (20:50)
[2019-06-03 03:32] LABS: Amorphous Sediment,Urine Few (Few); Bilirubin,Urine Negative (Negative); Blood,Urine Negative (Negative); Clarity,Urine Slightly Cloudy (Clear); Color,Urine Yellow (Yellow); Glucose,Urine (UA) Normal (Normal); Ketones,Urine Negative (Negative); Leukocyte Esterase,Urine Negative (Negative); Nitrite,Urine Negative (Negative); PH,Urine 5.5 pH Units (5.0-8.0); Protein,Urine Trace mg/dL (Neg-Trace); Specific Gravity,Urine >= 1.030 (1.010-1.025); Squamous Epithelial Cell,Urine Few per lpf (None-Few); Urobilinogen,Urine Normal (Normal)
[2019-06-03] MEDS: *HR* Heparin 5,000 UNIT/ML VIAL SQ SCH ×2 (06:23→17:44)
[2019-06-03] MEDS: Aspirin 81 MG TAB.CHEW PO SCH (08:22)
[2019-06-03] MEDS: tiZANidine 4 MG TABLET PO SCH ×3 (08:22→20:43)
[2019-06-03] MEDS: Lisinopril 20 MG TABLET PO SCH (08:22)
[2019-06-03] MEDS: Famotidine 20 MG TABLET PO SCH ×2 (08:22→20:43)
--- NOTE | 2019-06-03 10:21 | Internal Med Progress Note ---
Date of Encounter: 06/03/19 Time of Encounter: : - Assessment and plan (1) Right-sided cerebrovascular accident (CVA) Current Visit: Yes Status: Acute Assessment and plan: Continue PT, OT and ST. Will follow progress. No new neurological deficits at this time. Follow up with neurologist as scheduled. (2) CAD (coronary artery disease) Current Visit: Yes Status: Acute Assessment and plan: Stable. Denies chest pain. Monitor. Continue current medication. Qualifiers: Coronary Disease-Associated Artery/Lesion type: unspecified vessel or lesion type [place] vs. transplanted heart: [place] heart Associated angina: without angina Qualified Code(s): I25.10 - Atherosclerotic heart disease of [place] coronary artery without angina pectoris (3) Hypertension Current Visit: Yes Status: Acute Assessment and plan: Controlled with current medication. Monitor blood pressure. Qualifiers: Hypertension type: essential hypertension Qualified Code(s): I10 - Essential (primary) hypertension (4) Muscle spasticity Current Visit: Yes Status: Acute Assessment and plan: tizanidine increased to 4mg TID. denies side effects. will monitor for improvement. - Time Spent With Patient less than 15 minutes - Subjective Interval history: Participating well with therapy. urinalysis was negative. tizanidine dose increase yesterday for increased spasicity. Maintaining appetite and hydration. Denies any new neurological deficits, fever, chills, nausea vomiting or diarrhea. Denies shortness of breath or chest pain. - Constitutional Vitals: Temp Pulse Resp BP Pulse Ox 97.6 F 63 16 164/71 98 06/03/19 07:00 06/03/19 07:00 06/03/19 07:00 06/03/19 07:00 06/03/19 07:00 General appearance: Present: A&O X 3, pleasant, no acute distress, answers questions appropriately Exam: left facial droop - Head Head exam: Present: atraumatic, normocephalic - Eye Eye exam: Present: PERRL, conjuntiva pink, sclera anicteric Pupils: Present: PERRL - Neck Neck exam general surgery: Present: supple, trachea midline. Absent: lymphadenopathy - Respiratory Respiratory exam: Present: CTAB. Absent: accessory muscle use, rales, rhonchi, wheezes - Cardiovascular Cardiovascular exam: Present: RRR, +S1, +S2. Absent: diastolic murmur, gallop, rubs, systolic murmur - GI/Abdominal GI/Abdominal exam: Present: normal bowel sounds, soft, no peritoneal signs. Absent: distended, tenderness - Extremities Exam Extremities exam: Present: warm, radial pulses palpable and symmetrical. Absent: calf tenderness, cyanotic, pedal edema Additional comments: left hemiplegia - Neurological Exam Neurological exam: Present: CN II-XII intact, oriented X3, no focal deficits. Absent: pronater drift, facial droop, speech deficit - Skin Skin exam: Present: dry, intact Internal Medicine: Result - Labs CBC & Chem 7: 06/02/19 05:25 06/02/19 05:25 Labs: Urine 06/03/19 Range/Units 03:00 Urine Color Yellow (Yellow) Urine Clarity Slightly Cloudy A (Clear) Urine pH 5.5 (5.0-8.0) pH Units Ur Specific [place] >= 1.030 H (1.010-1.025) Urine Protein Trace (Neg-Trace) mg/dL Urine Glucose (UA) Normal (Normal) mg/dL Consult Discharge Plan - Plan Referrals: NONE,PCP [Primary Care Provider] -
[2019-06-03] MEDS: Acetaminophen 325 MG TABLET PO PRN (20:43)
[2019-06-04] MEDS: *HR* Heparin 5,000 UNIT/ML VIAL SQ SCH ×2 (06:31→18:51)
[2019-06-04] MEDS: Lisinopril 20 MG TABLET PO SCH (08:21)
[2019-06-04] MEDS: Aspirin 81 MG TAB.CHEW PO SCH (08:23)
[2019-06-04] MEDS: tiZANidine 4 MG TABLET PO SCH ×3 (08:23→20:18)
[2019-06-04] MEDS: Famotidine 20 MG TABLET PO SCH ×2 (08:23→20:18)
--- NOTE | 2019-06-04 10:31 | Internal Med Progress Note ---
Date of Encounter: 06/04/19 Time of Encounter: 10:30 - Assessment and plan (1) Right-sided cerebrovascular accident (CVA) Current Visit: Yes Status: Acute Assessment and plan: Continue PT, OT and ST. Will follow progress. No new neurological deficits at this time. Follow up with neurologist as scheduled. (2) CAD (coronary artery disease) Current Visit: Yes Status: Acute Assessment and plan: Stable. Denies chest pain. Monitor. Continue current medication. Qualifiers: Coronary Disease-Associated Artery/Lesion type: unspecified vessel or lesion type [place] vs. transplanted heart: [place] heart Associated angina: without angina Qualified Code(s): I25.10 - Atherosclerotic heart disease of [place] coronary artery without angina pectoris (3) Hypertension Current Visit: Yes Status: Acute Assessment and plan: Controlled with current medication. Monitor blood pressure. Qualifiers: Hypertension type: essential hypertension Qualified Code(s): I10 - Essential (primary) hypertension (4) Muscle spasticity Current Visit: Yes Status: Acute Assessment and plan: tizanidine increased to 4mg TID. denies side effects. will monitor for improvement. - Time Spent With Patient less than 15 minutes - Subjective Interval history: Participating well with therapy. Maintaining appetite and hydration. Denies any new neurological deficits, fever, chills, nausea vomiting or diarrhea. Denies shortness of breath or chest pain. - Constitutional Vitals: Temp Pulse Resp BP Pulse Ox 98.1 F 59 15 168/74 97 06/04/19 06:55 06/04/19 06:55 06/04/19 06:55 06/04/19 06:55 06/04/19 06:55 General appearance: Present: A&O X 3, pleasant, no acute distress, answers questions appropriately Exam: left facial droop - Head Head exam: Present: atraumatic, normocephalic - Eye Eye exam: Present: PERRL, conjuntiva pink, sclera anicteric Pupils: Present: PERRL - Neck Neck exam general surgery: Present: supple, trachea midline. Absent: lymphadenopathy - Respiratory Respiratory exam: Present: CTAB. Absent: accessory muscle use, rales, rhonchi, wheezes - Cardiovascular Cardiovascular exam: Present: RRR, +S1, +S2. Absent: diastolic murmur, gallop, rubs, systolic murmur - GI/Abdominal GI/Abdominal exam: Present: normal bowel sounds, soft, no peritoneal signs. Absent: distended, tenderness - Extremities Exam Extremities exam: Present: warm, radial pulses palpable and symmetrical. Absent: calf tenderness, cyanotic, pedal edema Additional comments: left hemiplegia - Neurological Exam Neurological exam: Present: CN II-XII intact, oriented X3, no focal deficits. Absent: pronater drift, facial droop, speech deficit - Skin Skin exam: Present: dry, intact Internal Medicine: Result - Labs CBC & Chem 7: 06/02/19 05:25 06/02/19 05:25 Consult Discharge Plan - Plan Referrals: NONE,PCP [Primary Care Provider] -
[2019-06-05] MEDS: *HR* Heparin 5,000 UNIT/ML VIAL SQ SCH ×2 (04:23→17:03)
[2019-06-05] MEDS: Famotidine 20 MG TABLET PO SCH ×2 (08:17→21:20)
[2019-06-05] MEDS: tiZANidine 4 MG TABLET PO SCH ×3 (08:17→21:20)
[2019-06-05] MEDS: Aspirin 81 MG TAB.CHEW PO SCH (08:17)
[2019-06-05] MEDS: Lisinopril 20 MG TABLET PO SCH (08:17)
--- NOTE | 2019-06-05 10:35 | Internal Med Progress Note ---
Date of Encounter: 06/05/19 Time of Encounter: 10:33 - Assessment and plan (1) Right-sided cerebrovascular accident (CVA) Current Visit: Yes Status: Acute Assessment and plan: Continue PT, OT and ST. Will follow progress. No new neurological deficits at this time. Follow up with neurologist as scheduled. (2) CAD (coronary artery disease) Current Visit: Yes Status: Acute Assessment and plan: Stable. Denies chest pain. Monitor. Continue current medication. Qualifiers: Coronary Disease-Associated Artery/Lesion type: unspecified vessel or lesion type [place] vs. transplanted heart: [place] heart Associated angina: without angina Qualified Code(s): I25.10 - Atherosclerotic heart disease of [place] coronary artery without angina pectoris (3) Hypertension Current Visit: Yes Status: Acute Assessment and plan: Controlled with current medication. Monitor blood pressure. Qualifiers: Hypertension type: essential hypertension Qualified Code(s): I10 - Essential (primary) hypertension (4) Muscle spasticity Current Visit: Yes Status: Acute Assessment and plan: improving. continue tizanidine. denies side effects. will monitor for improvement. - Subjective Interval history: sitting in [facility]. Participating well with therapy. Maintaining appetite and hydration. Denies any new neurological deficits, fever, chills, nausea vomiting or diarrhea. Denies shortness of breath or chest pain. states she slept well last night. - Constitutional Vitals: Temp Pulse Resp BP Pulse Ox 97.8 F 59 16 125/76 96 06/05/19 07:12 06/05/19 07:12 06/05/19 07:12 06/05/19 07:12 06/05/19 07:12 General appearance: Present: A&O X 3, pleasant, no acute distress, answers questions appropriately Exam: left facial droop - Head Head exam: Present: atraumatic, normocephalic - Eye Eye exam: Present: PERRL, conjuntiva pink, sclera anicteric Pupils: Present: PERRL - Neck Neck exam general surgery: Present: supple, trachea midline. Absent: lymphadenopathy - Respiratory Respiratory exam: Present: CTAB. Absent: accessory muscle use, rales, rhonchi, wheezes - Cardiovascular Cardiovascular exam: Present: RRR, +S1, +S2. Absent: diastolic murmur, gallop, rubs, systolic murmur - GI/Abdominal GI/Abdominal exam: Present: normal bowel sounds, soft, no peritoneal signs. Absent: distended, tenderness - Extremities Exam Extremities exam: Present: warm, radial pulses palpable and symmetrical. Absent: calf tenderness, cyanotic, pedal edema Additional comments: left sided weakness - Neurological Exam Neurological exam: Present: CN II-XII intact, oriented X3, no focal deficits. Absent: pronater drift, facial droop, speech deficit - Skin Skin exam: Present: dry, intact Internal Medicine: Result - Labs CBC & Chem 7: 06/02/19 05:25 06/02/19 05:25 Consult Discharge Plan - Plan Referrals: NONE,PCP [Primary Care Provider] -
[2019-06-06] MEDS: *HR* Heparin 5,000 UNIT/ML VIAL SQ SCH ×2 (05:03→16:51)
[2019-06-06] MEDS: Lisinopril 20 MG TABLET PO SCH (08:20)
[2019-06-06] MEDS: tiZANidine 4 MG TABLET PO SCH ×3 (08:20→20:25)
[2019-06-06] MEDS: Aspirin 81 MG TAB.CHEW PO SCH (08:20)
[2019-06-06] MEDS: Famotidine 20 MG TABLET PO SCH ×2 (08:20→20:24)
--- NOTE | 2019-06-06 11:32 | Internal Med Progress Note ---
Date of Encounter: 06/06/19 Time of Encounter: 11:05 - Assessment and plan (1) Right-sided cerebrovascular accident (CVA) Current Visit: Yes Status: Acute Assessment and plan: Continued minimal slow improvement. She has better function in her left lower extremity but left upper extremity is essentially still with dense hemiparesis. Therapies to continue. (2) CAD (coronary artery disease) Current Visit: Yes Status: Acute Assessment and plan: Clinically stable without signs or symptoms. Qualifiers: Coronary Disease-Associated Artery/Lesion type: unspecified vessel or lesion type [place] vs. transplanted heart: [place] heart Associated angina: without angina Qualified Code(s): I25.10 - Atherosclerotic heart disease of [place] coronary artery without angina pectoris (3) Hypertension Current Visit: Yes Status: Acute Assessment and plan: We will continue current regimen. Qualifiers: Hypertension type: essential hypertension Qualified Code(s): I10 - Essential (primary) hypertension (4) Adjustment disorder with depressed mood Current Visit: Yes Status: Acute Assessment and plan: Clinically, seems to be improving. (5) Pain in both knees Current Visit: Yes Status: Acute Assessment and plan: This seems to be arthritic and mild. We will follow and encourage patient to use acetaminophen as needed. Qualifiers: Chronicity: chronic Qualified Code(s): M25.561 - Pain in right knee; M25.562 - Pain in left knee; G89.29 - Other chronic pain - Subjective Interval history: Patient complains of bilateral knee pain, nothing else. She asks what she can take for this. She occasionally uses Tylenol on this helps. I encouraged her to continue to use that. She states bowel and bladder function are adequate. Patient has no complaint of chest discomfort, dyspnea, orthopnea, palpitations, nausea or vomiting, constipation or diarrhea, other changes in bowel habits, difficulty with urination, rash or itching, or other new complaints, except as mentioned above. Review of systems is otherwise negative. I discussed management of patient's care with nursing staff. - Constitutional Vitals: Temp Pulse Resp BP Pulse Ox 98.1 F 59 16 154/73 97 06/06/19 07:43 06/06/19 07:43 06/06/19 07:43 06/06/19 07:43 06/06/19 07:43 Exam: Examination: (Except as mentioned above): General: In no apparent distress. Alert and oriented 3. Nondiaphoretic. Head: Atraumatic and normocephalic. Respiratory: No use of accessory muscles. Lungs are clear throughout. Normal airflow. Cardiovascular: Regular rate and rhythm without murmur appreciated. No irregularity, today. Abdomen: Bowel sounds are normal. No hepatosplenomegaly mass or tenderness appreciated. Obese and therefore difficult to palpate deeply. Patient is examined upright in chair and this also limits exam. Extremities: No cyanosis clubbing or edema. Skin: Warm and non-diaphoretic with no new lesions noted. Neurologic: Still with left facial droop and left upper extremity hemiparesis. Left lower extremity is weak but function is better than previous. Internal Medicine: Result - Labs CBC & Chem 7: 06/02/19 05:25 06/02/19 05:25 Consult Discharge Plan - Plan Referrals: NONE,PCP [Primary Care Provider] -
[2019-06-07] MEDS: *HR* Heparin 5,000 UNIT/ML VIAL SQ SCH ×2 (06:51→16:38)
[2019-06-07] MEDS: Lisinopril 20 MG TABLET PO SCH (08:08)
[2019-06-07] MEDS: tiZANidine 4 MG TABLET PO SCH ×3 (08:09→21:46)
[2019-06-07] MEDS: Aspirin 81 MG TAB.CHEW PO SCH (08:09)
[2019-06-07] MEDS: Famotidine 20 MG TABLET PO SCH ×2 (08:09→21:46)
--- NOTE | 2019-06-07 12:37 | Internal Med Progress Note ---
Date of Encounter: 06/07/19 Time of Encounter: 11:40 - Subjective Interval history: dd - Assessment and plan (1) Right-sided cerebrovascular accident (CVA) Current Visit: Yes Status: Acute Assessment and plan: Patient continues to have left upper extremity remaining flaccid due to CVA. L eft lower extremity shows minimal movement on hip flexure but patient increase in strength to her left distal leg. Right extremities with 5/5 muscle strength. Patient noted to have slight slurred speech during conversation. Continued slight left facial droop. She does participate in therapy and states that she feels she has had a slight increase in strength at left leg. We will continue with current plan of care and therapy. (2) CAD (coronary artery disease) Current Visit: Yes Status: Acute Assessment and plan: No acute issues. Patient continues with a slight systolic murmur. Denies any chest discomforts or palpitations. Vital signs are stable. We will continue with current plan of care and medications. Qualifiers: Coronary Disease-Associated Artery/Lesion type: unspecified vessel or lesion type [place] vs. transplanted heart: [place] heart Associated angina: without angina Qualified Code(s): I25.10 - Atherosclerotic heart disease of [place] coronary artery without angina pectoris (3) Hypertension Current Visit: Yes Status: Acute Assessment and plan: Vital signs remained stable. We will continue with a systolic blood pressure goal of less than 160. We will continue with current medications Qualifiers: Hypertension type: essential hypertension Qualified Code(s): I10 - Essential (primary) hypertension - Time Spent With Patient less than 15 minutes - Subjective Interval history: pt currently denies any chest pain or shortness of breath. Patient states that she feels she has had a slight increase in strength to her left leg which she was able to demonstrate minimal movement approximately. Left upper extremity remains flaccid. Patient denies any other issues and states that therapy helps - EXAM General appearance: Present: A&O X 3, pleasant, no acute distress, appears comfortable at rest - Head Head exam: Present: atraumatic, normocephalic - Eye Eye exam: Present: PERRL, conjuntiva pink, sclera anicteric Pupils: Present: PERRL - Neck Neck exam general surgery: Present: supple, trachea midline. Absent: lymphadenopathy - Respiratory Respiratory exam: Present: CTAB. Absent: accessory muscle use, rales, rhonchi, wheezes - Cardiovascular Cardiovascular exam: Present: RRR, +S1, +S2. Absent: diastolic murmur, gallop, rubs, systolic murmur - GI/Abdominal GI/Abdominal exam: Present: normal bowel sounds, soft, no peritoneal signs. Absent: distended, tenderness - Extremities Exam Extremities exam: Present: warm, radial pulses palpable and symmetrical. Absent: calf tenderness, cyanotic, pedal edema - Neurological Exam Neurological exam: Present: CN II-XII intact, oriented X3, facial droop, speech deficit Additional comments: Patient continues to have left facial droop and dysarthria. Left upper extremity remains flaccid. Patient shows 2/5 muscle strength on left hip flexure. Distally has 3/5 muscle strength, except for left dorsiflexion which is at 2/5. Right extremities at 5/5 muscle strength. - Skin Skin exam: Present: dry, intact - Constitutional Vitals: Temp Pulse Resp BP Pulse Ox 98.3 F 59 16 158/77 95 06/07/19 07:39 06/07/19 07:39 06/07/19 07:39 06/07/19 07:39 06/07/19 07:39 General appearance: Present: A&O X 3, pleasant, no acute distress, answers questions appropriately Internal Medicine: Result - Labs CBC & Chem 7: 06/02/19 05:25 06/02/19 05:25 Consult Discharge Plan - Plan Referrals: NONE,PCP [Primary Care Provider] -
[2019-06-07] MEDS: Acetaminophen 325 MG TABLET PO PRN (21:46)
[2019-06-08] MEDS: *HR* Heparin 5,000 UNIT/ML VIAL SQ SCH ×2 (05:22→16:57)
[2019-06-08] MEDS: tiZANidine 4 MG TABLET PO SCH ×3 (07:50→19:58)
[2019-06-08] MEDS: Famotidine 20 MG TABLET PO SCH ×2 (07:50→19:58)
[2019-06-08] MEDS: Lisinopril 20 MG TABLET PO SCH (07:51)
[2019-06-08] MEDS: Aspirin 81 MG TAB.CHEW PO SCH (07:51)
--- NOTE | 2019-06-08 14:52 | Internal Med Progress Note ---
Date of Encounter: 06/08/19 Time of Encounter: 14:30 - Subjective Interval history: dd - Assessment and plan (1) Right-sided cerebrovascular accident (CVA) Current Visit: Yes Status: Acute Assessment and plan: Patient continues to have left upper extremity remaining flaccid due to CVA. L eft lower extremity shows minimal movement on hip flexure but patient increase in strength to her left distal leg. Right extremities with 5/5 muscle strength. Patient noted to have slight slurred speech during conversation. Continued slight left facial droop. She does participate in therapy and states that she feels she has had a slight increase in strength at left leg. We will continue with current plan of care and therapy. (2) CAD (coronary artery disease) Current Visit: Yes Status: Acute Assessment and plan: No acute issues. Patient continues with a slight systolic murmur. Denies any chest discomforts or palpitations. Vital signs are stable. We will continue with current plan of care and medications. Qualifiers: Coronary Disease-Associated Artery/Lesion type: unspecified vessel or lesion type [place] vs. transplanted heart: [place] heart Associated angina: without angina Qualified Code(s): I25.10 - Atherosclerotic heart disease of [place] coronary artery without angina pectoris (3) Hypertension Current Visit: Yes Status: Acute Assessment and plan: Vital signs remained stable. We will continue with a systolic blood pressure goal of less than 160. We will continue with current medications Qualifiers: Hypertension type: essential hypertension Qualified Code(s): I10 - Essential (primary) hypertension - Time Spent With Patient less than 15 minutes - Subjective Interval history: pt currently denies any chest pain or shortness of breath. Patient states that she feels she has had a slight increase in strength to her left leg which she was able to demonstrate minimal movement approximately. Left upper extremity remains flaccid. Patient denies any other issues and states that therapy helps - EXAM General appearance: Present: A&O X 3, pleasant, no acute distress, appears comfortable at rest - Head Head exam: Present: atraumatic, normocephalic - Eye Eye exam: Present: PERRL, conjuntiva pink, sclera anicteric Pupils: Present: PERRL - Neck Neck exam general surgery: Present: supple, trachea midline. Absent: lymphadenopathy - Respiratory Respiratory exam: Present: CTAB. Absent: accessory muscle use, rales, rhonchi, wheezes - Cardiovascular Cardiovascular exam: Present: RRR, +S1, +S2. Absent: diastolic murmur, gallop, rubs, systolic murmur - GI/Abdominal GI/Abdominal exam: Present: normal bowel sounds, soft, no peritoneal signs. Absent: distended, tenderness - Extremities Exam Extremities exam: Present: warm, radial pulses palpable and symmetrical. Absent: calf tenderness, cyanotic, pedal edema - Neurological Exam Neurological exam: Present: CN II-XII intact, oriented X3, facial droop, speech deficit Additional comments: Patient continues to have left facial droop and dysarthria. Left upper extremity remains flaccid. Patient shows 2/5 muscle strength on left hip flexure. Distally has 3/5 muscle strength, except for left dorsiflexion which is at 2/5. Right extremities at 5/5 muscle strength. - Skin Skin exam: Present: dry, intact - Constitutional Vitals: Temp Pulse Resp BP Pulse Ox 98.0 F 62 16 133/68 96 06/08/19 08:52 06/08/19 08:52 06/08/19 08:52 06/08/19 08:52 06/08/19 08:52 General appearance: Present: A&O X 3, pleasant, no acute distress, answers questions appropriately Internal Medicine: Result - Labs CBC & Chem 7: 06/02/19 05:25 06/02/19 05:25 Consult Discharge Plan - Plan Referrals: NONE,PCP [Primary Care Provider] -
[2019-06-08] MEDS: Acetaminophen 325 MG TABLET PO PRN (19:58)
[2019-06-09] MEDS: *HR* Heparin 5,000 UNIT/ML VIAL SQ SCH ×2 (05:24→17:20)
[2019-06-09 06:13] LABS: Basophils % 0.6 %; Eosinophils # 0.3 K/mcL (0.0-0.6); Eosinophils % 5.2 %; Hematocrit 38.4 % (35.3-44.9); Hemoglobin 12.6 g/dL (11.5-15.4); Immature Granulocytes % 0.4 % (0-4); Lymphocytes # 1.4 K/mcL (0.6-4.6); Lymphocytes % 26.9 %; Mean Corpuscular HGB Conc 32.8 g/dL (31.6-35.5); Mean Corpuscular Hemoglobin 29.3 pg (28.0-33.3); Mean Corpuscular Volume 89.3 fL (83.0-100.0); Mean Platelet Volume 10.5 fL (9.4-12.4); Monocytes # 0.4 K/mcL (0.0-1.3); Monocytes % 8.5 %; Platelet Count 185 K/mcL (140-400); Red Cell Distribution Width 14.1 % (11.5-14.5); Segmented Neutrophils % 58.4 %; White Blood Count 5.2 K/mcL (4.3-11.1)
[2019-06-09 06:26] LABS: BUN/Creatinine Ratio 29 (6-26); Blood Urea Nitrogen 23 mg/dL (8-23); Calcium 8.9 mg/dL (8.6-10.3); Carbon Dioxide 27 mEq/L (23-29); Chloride 108 mEq/L (98-107); Glucose 100 mg/dL (70-105); Magnesium 1.9 mg/dL (1.6-2.6); Osmolality,Calculated 296 (280-300); Potassium 4.3 mEq/L (3.5-5.1); Sodium 141 mEq/L (136-145); eGFR For African Americans > 60 (> 60); eGFR For Non-African Americans > 60 (> 60)
[2019-06-09] MEDS: Famotidine 20 MG TABLET PO SCH ×2 (08:28→20:11)
[2019-06-09] MEDS: Aspirin 81 MG TAB.CHEW PO SCH (08:28)
[2019-06-09] MEDS: tiZANidine 4 MG TABLET PO SCH ×3 (08:28→20:11)
[2019-06-09] MEDS: Lisinopril 20 MG TABLET PO SCH (08:28)
--- NOTE | 2019-06-09 11:46 | Internal Med Progress Note ---
Date of Encounter: 06/09/19 Time of Encounter: 11:41 - Assessment and plan (1) Right-sided cerebrovascular accident (CVA) Current Visit: Yes Status: Acute Assessment and plan: Continue PT, OT and ST. Will follow progress. No new neurological deficits at this time. Follow up with neurologist as scheduled. (2) CAD (coronary artery disease) Current Visit: Yes Status: Acute Assessment and plan: Stable. Denies chest pain. Monitor. Continue current medication. Qualifiers: Coronary Disease-Associated Artery/Lesion type: unspecified vessel or lesion type [place] vs. transplanted heart: [place] heart Associated angina: without angina Qualified Code(s): I25.10 - Atherosclerotic heart disease of [place] coronary artery without angina pectoris (3) Hypertension Current Visit: Yes Status: Acute Assessment and plan: Controlled with current medication. Monitor blood pressure. Qualifiers: Hypertension type: essential hypertension Qualified Code(s): I10 - Essential (primary) hypertension (4) Muscle spasticity Current Visit: Yes Status: Acute Assessment and plan: improving. continue tizanidine. denies side effects. will monitor for improvement. - Time Spent With Patient 25 - 35 minutes - Subjective Interval history: sitting in [facility]. Participating well with therapy. Maintaining appetite and hyd ration. Denies any new neurological deficits, fever, chills, nausea vomiting or diarrhea. Denies shortness of breath or chest pain. states she slept well last night. Hot family meeting today with children, therapy and psych social worker to discuss progress in discharge planning. Discussed advanced directives. Patient wishes to be DNRCC. - Constitutional Vitals: Temp Pulse Resp BP Pulse Ox 98.7 F 60 16 157/76 97 06/09/19 07:40 06/09/19 07:40 06/09/19 07:40 06/09/19 07:40 06/09/19 07:40 General appearance: Present: A&O X 3, pleasant, no acute distress, answers questions appropriately Exam: Left facial droop - Head Head exam: Present: atraumatic, normocephalic - Eye Eye exam: Present: PERRL, conjuntiva pink, sclera anicteric Pupils: Present: PERRL - Neck Neck exam general surgery: Present: supple, trachea midline. Absent: lymp hadenopathy - Respiratory Respiratory exam: Present: CTAB. Absent: accessory muscle use, rales, rhonchi, wheezes - Cardiovascular Cardiovascular exam: Present: RRR, +S1, +S2. Absent: diastolic murmur, gallop, rubs, systolic murmur - GI/Abdominal GI/Abdominal exam: Present: normal bowel sounds, soft, no peritoneal signs. Absent: distended, tenderness - Extremities Exam Extremities exam: Present: warm, radial pulses palpable and symmetrical. Absent: calf tenderness, cyanotic, pedal edema Additional comments: Left-sided weakness - Neurological Exam Neurological exam: Present: CN II-XII intact, oriented X3, no focal deficits. Absent: pronater drift, facial droop, speech deficit - Skin Skin exam: Present: dry, intact Internal Medicine: Result - Labs CBC & Chem 7: 06/09/19 05:50 06/09/19 05:50 Labs: Short CBC 06/09/19 Range/Units 05:50 WBC 5.2 (4.3-11.1) K/mcL Hgb 12.6 (11.5-15.4) g/dL Hct 38.4 (35.3-44.9) % Plt Count 185 (140-400) K/mcL Neutrophils # 3.0 (1.6-8.9) K/mcL BMP 06/09/19 05:50 Sodium 141 Potassium 4.3 Chloride 108 H Carbon Dioxide 27 BUN 23 Creatinine 0.79 Glucose 100 Calcium 8.9 Consult Discharge Plan - Plan Referrals: NONE,PCP [Primary Care Provider] -
[2019-06-09] MEDS: Acetaminophen 325 MG TABLET PO PRN (20:11)
[2019-06-10] MEDS: *HR* Heparin 5,000 UNIT/ML VIAL SQ SCH ×2 (04:25→16:59)
[2019-06-10] MEDS: Acetaminophen 325 MG TABLET PO PRN ×2 (04:26→20:48)
[2019-06-10] MEDS: tiZANidine 4 MG TABLET PO SCH ×3 (08:13→20:48)
[2019-06-10] MEDS: Aspirin 81 MG TAB.CHEW PO SCH (08:13)
[2019-06-10] MEDS: Famotidine 20 MG TABLET PO SCH ×2 (08:13→20:48)
[2019-06-10] MEDS: Lisinopril 20 MG TABLET PO SCH (08:13)
--- NOTE | 2019-06-10 12:18 | Internal Med Progress Note ---
Date of Encounter: 06/10/19 Time of Encounter: 12:16 - Assessment and plan (1) Right-sided cerebrovascular accident (CVA) Current Visit: Yes Status: Acute Assessment and plan: Continue PT, OT and ST. Will follow progress. No new neurological deficits at this time. Follow up with neurologist as scheduled. (2) CAD (coronary artery disease) Current Visit: Yes Status: Acute Assessment and plan: Stable. Denies chest pain. Monitor. Continue current medication. Qualifiers: Coronary Disease-Associated Artery/Lesion type: unspecified vessel or lesion type [place] vs. transplanted heart: [place] heart Associated angina: without angina Qualified Code(s): I25.10 - Atherosclerotic heart disease of [place] coronary artery without angina pectoris (3) Hypertension Current Visit: Yes Status: Acute Assessment and plan: Controlled with current medication. Monitor blood pressure. Qualifiers: Hypertension type: essential hypertension Qualified Code(s): I10 - Essential (primary) hypertension (4) Muscle spasticity Current Visit: Yes Status: Acute Assessment and plan: improving. continue tizanidine. denies side effects. will monitor for improvement. - Time Spent With Patient less than 15 minutes - Subjective Interval history: sitting in [facility]. Participating well with therapy. Maintaining appetite and hydration. Denies any new neurological deficits, fever, chills, nausea vomiting or diarrhea. Denies shortness of breath or chest pain. states she slept well last night. Has been having difficulty putting socks on due to toe nail length. Podiatry unable to see for at least another week. Consult it wound about left pinky toe. They were able to see her and remains most of the toenail. No drainage around nailbed but will continue to monitor - Constitutional Vitals: Temp Pulse Resp BP Pulse Ox 98 F 58 14 155/69 98 06/10/19 07:34 06/10/19 07:34 06/10/19 07:34 06/10/19 07:34 06/10/19 07:34 General appearance: Present: A&O X 3, pleasant, no acute distress, answers questions appropriately Exam: Left facial droop - Head Head exam: Present: atraumatic, normocephalic - Eye Eye exam: Present: PERRL, conjuntiva pink, sclera anicteric Pupils: Present: PERRL - Neck Neck exam general surgery: Present: supple, trachea midline. Absent: lymphadenopathy - Respiratory Respiratory exam: Present: CTAB. Absent: accessory muscle use, rales, rhonchi, wheezes - Cardiovascular Cardiovascular exam: Present: RRR, +S1, +S2. Absent: diastolic murmur, gallop, rubs, systolic murmur - GI/Abdominal GI/Abdominal exam: Present: normal bowel sounds, soft, no peritoneal signs. Absent: distended, tenderness - Extremities Exam Extremities exam: Present: warm, radial pulses palpable and symmetrical. Absent: calf tenderness, cyanotic, pedal edema Additional comments: Left hemiparesis - Neurological Exam Neurological exam: Present: CN II-XII intact, oriented X3, no focal deficits. Absent: pronater drift, facial droop, speech deficit - Skin Skin exam: Present: dry, intact Additional comments: Toenails thick and long, left pinky toe skin area surrounding nail bed slightly red. Internal Medicine: Result - Labs CBC & Chem 7: 06/09/19 05:50 06/09/19 05:50 Consult Discharge Plan - Plan Referrals: NONE,PCP [Primary Care Provider] -
[2019-06-11] MEDS: Acetaminophen 325 MG TABLET PO PRN (05:13)
[2019-06-11] MEDS: *HR* Heparin 5,000 UNIT/ML VIAL SQ SCH ×2 (05:13→18:19)
[2019-06-11] MEDS: Aspirin 81 MG TAB.CHEW PO SCH (08:14)
[2019-06-11] MEDS: Famotidine 20 MG TABLET PO SCH ×2 (08:14→19:55)
[2019-06-11] MEDS: Lisinopril 20 MG TABLET PO SCH (08:14)
[2019-06-11] MEDS: tiZANidine 4 MG TABLET PO SCH ×3 (08:14→19:55)
--- NOTE | 2019-06-11 11:18 | Internal Med Progress Note ---
Date of Encounter: 06/11/19 Time of Encounter: 11:16 - Assessment and plan (1) Right-sided cerebrovascular accident (CVA) Current Visit: Yes Status: Acute Assessment and plan: Patient continues to have left upper extremity remaining mostly flaccid. Left lower extremity shows improvement in muscle strength with patient reporting that she has been able to bear weight with the left leg during therapy. Right extremities with 5/5 muscle strength. Dysarthria has improved Continued slight left facial droop. We will continue with current plan of care and will continue with current therapy. (2) CAD (coronary artery disease) Current Visit: Yes Status: Acute Assessment and plan: No acute issues. Patient continues with a slight systolic murmur. Denies any chest discomforts or palpitations. Vital signs are stable. We will continue with current plan of care and medications. Qualifiers: Coronary Disease-Associated Artery/Lesion type: unspecified vessel or lesion type [place] vs. transplanted heart: [place] heart Associated angina: without angina Qualified Code(s): I25.10 - Atherosclerotic heart disease of [place] oronary artery without angina pectoris (3) Hypertension Current Visit: Yes Status: Acute Assessment and plan: Vital signs remained stable. We will continue with a systolic blood pressure goal of less than 160. We will continue with current medications Qualifiers: Hypertension type: essential hypertension Qualified Code(s): I10 - Essential (primary) hypertension - Subjective Interval history: Appears relaxed currently denies any discomforts or shortness of breath. Patient states that she continues to have an increase in strength to her left leg which she she has been able to bear weight and has ambulated with assist for a short distance. Patient denies any other issues and states that therapy has been progressing well. States disappointment that she has not had any noted improvement to the motor function of the left arm. - Constitutional Vitals: Temp Pulse Resp BP Pulse Ox 98.2 F 62 17 146/68 97 06/11/19 06:35 06/11/19 06:35 06/11/19 06:35 06/11/19 06:35 06/11/19 06:35 General appearance: Present: A&O X 3, pleasant, no acute distress, answers questions appropriately - Head Head exam: Present: atraumatic, normocephalic - Eye Eye exam: Present: PERRL, conjuntiva pink, sclera anicteric Pupils: Present: PERRL - Neck Neck exam general surgery: Present: supple, trachea midline. Absent: lymphadenopathy - Respiratory Respiratory exam: Present: CTAB. Absent: accessory muscle use, rales, rhonchi, wheezes - Cardiovascular Cardiovascular exam: Present: RRR, +S1, +S2. Absent: diastolic murmur, gallop, rubs, systolic murmur - GI/Abdominal GI/Abdominal exam: Present: normal bowel sounds, soft, no peritoneal signs. Absent: distended, tenderness - Extremities Exam Extremities exam: Present: warm, radial pulses palpable and symmetrical. Absent: calf tenderness, cyanotic, pedal edema - Neurological Exam Neurological exam: Present: oriented X3, facial droop, speech deficit. Absent: pronater drift Additional comments: Patient continues to show a left facial droop, but her dysarthria has improved. Continue with left upper extremity remaining flaccid at 0/5, but her left lower extremity has improved to a 4/5 muscle strength. Right extremities of 5/5 muscle strength - Skin Skin exam: Present: dry, intact Internal Medicine: Result - Labs CBC & Chem 7: 06/09/19 05:50 06/09/19 05:50 Consult Discharge Plan - Plan Referrals: NONE,PCP [Primary Care Provider] -
--- NOTE | 2019-06-11 14:03 | Rehab Psychology Progress Note ---
Date of Encounter: 06/11/19 Time of Encounter: 10:00 Subjective - Patient Report Patient Report: Tearful during session. Stated she was "a little anxious" with going home. Stated her 19 yr old granddaughter was going to live with her. Team noted she was going to ECF however Pt did not acknowledge this. Discussed her concern of being a "burden" to her family. - Symptoms Symptoms: Affect flat. Tearful with situation and changes that will effect her independence upon DC - driving, hygiene (ADL's). Objective - WHODAS Functional Impairment Concentration, Problem-solving, Communication: Moderate Social Functioning: Moderate - Comments Functional Status Comments: Cognition - attention/memory varies. More emotional thus fluctuates - Mental Status Mental Status Changes: OX3 decrease in attn/memory with regard to recalling info given and following conversations. Assessment and Plan - Diagnosis (1) Adjustment disorder with depressed mood - Response to Treatment Response to Treatment: Worse - Prognosis Prognosis: Fair - Treatment Plan Treatment Plan Recommendations: Change Treatment Plan/Goals Changes in Treatment Plan Goals: Increase anxiety has decreased cognition thus rec MD romero for medication to manage anxiety/depression better. Treatment Frequency: weekly Next Session Date: 06/16/19 Procedures - Intervention Interventions: Cognitive/Behavioral Therapy - Modality Modality: Psychotherapy 30 minutes - Participants Therapy Participant: Patient - Session Time Session Start Time: 10:00 Session Stop Time: 10:30
[2019-06-12] MEDS: *HR* Heparin 5,000 UNIT/ML VIAL SQ SCH ×2 (04:17→17:23)
[2019-06-12] MEDS: Lisinopril 20 MG TABLET PO SCH (08:02)
[2019-06-12] MEDS: Aspirin 81 MG TAB.CHEW PO SCH (08:02)
[2019-06-12] MEDS: Famotidine 20 MG TABLET PO SCH ×2 (08:03→20:07)
[2019-06-12] MEDS: tiZANidine 4 MG TABLET PO SCH ×3 (08:03→20:06)
--- NOTE | 2019-06-12 10:51 | Internal Med Progress Note ---
Date of Encounter: 06/12/19 Time of Encounter: 10:50 - Assessment and plan (1) Right-sided cerebrovascular accident (CVA) Current Visit: Yes Status: Acute Assessment and plan: Patient continues to have left upper extremity remaining mostly flaccid. Left lower extremity shows improvement in muscle strength with patient reporting that she has been able to bear weight with the left leg during therapy. Right extremities with 5/5 muscle strength. Dysarthria has improved Continued slight left facial droop. We will continue with current plan of care and will continue with current therapy. (2) CAD (coronary artery disease) Current Visit: Yes Status: Acute Assessment and plan: No acute issues. Patient continues with a slight systolic murmur. Denies any chest discomforts or palpitations. Vital signs are stable. We will continue with current plan of care and medications. Qualifiers: Coronary Disease-Associated Artery/Lesion type: unspecified vessel or lesion type [place] vs. transplanted heart: [place] heart Associated angina: without angina Qualified Code(s): I25.10 - Atherosclerotic heart disease of [place] oronary artery without angina pectoris (3) Hypertension Current Visit: Yes Status: Acute Assessment and plan: Vital signs remained stable. We will continue with a systolic blood pressure goal of less than 160. We will continue with current medications Qualifiers: Hypertension type: essential hypertension Qualified Code(s): I10 - Essential (primary) hypertension (4) Depression Current Visit: Yes Status: Acute Assessment and plan: Patient was seen by psychology yesterday with reports of tearful interview and possible denial of need for placement to ECF. Patient currently has not related to any issues. Patient was started on Paxil Qualifiers: Depression Type: unspecified Qualified Code(s): F32.9 - Major depressive disorder, single episode, unspecified - Time Spent With Patient less than 15 minutes - Subjective Interval history: Appears relaxed currently denies any discomforts or shortness of breath. Patient states that she continues to have an increase in strength to her left leg which she she has been able to bear weight and has ambulated with assist for a short distance. Patient denies any other issues and states that therapy has been progressing well. States disappointment that she has not had any noted improvement to the motor function of the left arm. Patient was seen by psychology yesterday with reports that she was quite tearful during the interview and was not acknowledging the possible need of being placed in a ECF. Psychology had suggested a antidepressant. - Constitutional Vitals: Temp Pulse Resp BP Pulse Ox 98.1 F 65 16 168/64 96 06/12/19 07:20 06/12/19 07:20 06/12/19 07:20 06/12/19 07:20 06/12/19 07:20 General appearance: Present: A&O X 3, pleasant, no acute distress, answers questions appropriately - Head Head exam: Present: atraumatic, normocephalic - Eye Eye exam: Present: PERRL, conjuntiva pink, sclera anicteric Pupils: Present: PERRL - Neck Neck exam general surgery: Present: supple, trachea midline. Absent: lymphadenopathy - Respiratory Respiratory exam: Present: CTAB. Absent: accessory muscle use, rales, rhonchi, wheezes - Cardiovascular Cardiovascular exam: Present: RRR, +S1, +S2. Absent: diastolic murmur, gallop, rubs, systolic murmur - GI/Abdominal GI/Abdominal exam: Present: normal bowel sounds, soft, no peritoneal signs. Absent: distended, tenderness - Extremities Exam Extremities exam: Present: warm, radial pulses palpable and symmetrical. Absent: calf tenderness, cyanotic, pedal edema - Neurological Exam Neurological exam: Present: oriented X3, facial droop, speech deficit. Absent: pronater drift Additional comments: Patient continues with left facial droop and slight dysarthria. Left upper extremity remains flaccid 0/5 strength in left lower extremity shows muscle strength of 4/5 muscle strength. Right extremities and 5/5 muscle strength. - Skin Skin exam: Present: dry, intact Internal Medicine: Result - Labs CBC & Chem 7: 06/09/19 05:50 06/09/19 05:50 Consult Discharge Plan - Plan Referrals: NONE,PCP [Primary Care Provider] -
[2019-06-12] MEDS: Acetaminophen 325 MG TABLET PO PRN (20:09)
[2019-06-13] MEDS: *HR* Heparin 5,000 UNIT/ML VIAL SQ SCH ×2 (04:15→18:09)
[2019-06-13] MEDS: Aspirin 81 MG TAB.CHEW PO SCH (08:20)
[2019-06-13] MEDS: Lisinopril 20 MG TABLET PO SCH (08:20)
[2019-06-13] MEDS: tiZANidine 4 MG TABLET PO SCH ×3 (08:21→20:28)
[2019-06-13] MEDS: Famotidine 20 MG TABLET PO SCH ×2 (08:21→20:27)
--- NOTE | 2019-06-13 11:07 | Internal Med Progress Note ---
Date of Encounter: 06/13/19 Time of Encounter: 11:05 - Assessment and plan (1) Right-sided cerebrovascular accident (CVA) Current Visit: Yes Status: Acute Assessment and plan: Continue PT, OT and ST. Will follow progress. No new neurological deficits at this time. Follow up with neurologist as scheduled. (2) CAD (coronary artery disease) Current Visit: Yes Status: Acute Assessment and plan: Stable. Denies chest pain. Monitor. Continue current medication. Qualifiers: Coronary Disease-Associated Artery/Lesion type: unspecified vessel or lesion type [place] vs. transplanted heart: [place] heart Associated angina: without angina Qualified Code(s): I25.10 - Atherosclerotic heart disease of [place] coronary artery without angina pectoris (3) Hypertension Current Visit: Yes Status: Acute Assessment and plan: Controlled with current medication. Monitor blood pressure. Qualifiers: Hypertension type: essential hypertension Qualified Code(s): I10 - Essential (primary) hypertension (4) Muscle spasticity Current Visit: Yes Status: Acute Assessment and plan: improving. continue tizanidine. denies side effects. - Time Spent With Patient less than 15 minutes - Subjective Interval history: sitting in [facility]. Participating well with therapy. Maintaining appetite and hydration. Denies any new neurological deficits, fever, chills, nausea vomiting or diarrhea. Denies shortness of breath or chest pain. states she slept well last night.propels self in [facility]. - Constitutional Vitals: Temp Pulse Resp BP Pulse Ox 98.5 F 65 16 158/67 97 06/13/19 07:09 06/13/19 07:09 06/13/19 07:09 06/13/19 07:09 06/13/19 07:09 General appearance: Present: A&O X 3, pleasant, no acute distress, answers questions appropriately Exam: left facial droop - Head Head exam: Present: atraumatic, normocephalic - Eye Eye exam: Present: PERRL, conjuntiva pink, sclera anicteric Pupils: Present: PERRL - Neck Neck exam general surgery: Present: supple, trachea midline. Absent: lymphadenopathy - Respiratory Respiratory exam: Present: CTAB. Absent: accessory muscle use, rales, rhonchi, wheezes - Cardiovascular Cardiovascular exam: Present: RRR, +S1, +S2. Absent: diastolic murmur, gallop, rubs, systolic murmur - GI/Abdominal GI/Abdominal exam: Present: normal bowel sounds, soft, no peritoneal signs. Absent: distended, tenderness - Extremities Exam Extremities exam: Present: warm, radial pulses palpable and symmetrical. Absent: calf tenderness, cyanotic, pedal edema Additional comments: left side weakness - Neurological Exam Neurological exam: Present: CN II-XII intact, oriented X3, no focal deficits. Absent: pronater drift, facial droop, speech deficit - Skin Skin exam: Present: dry, intact Internal Medicine: Result - Labs CBC & Chem 7: 06/09/19 05:50 06/09/19 05:50 Consult Discharge Plan - Plan Referrals: NONE,PCP [Primary Care Provider] -
[2019-06-13] MEDS: Acetaminophen 325 MG TABLET PO PRN (20:26)
[2019-06-14] MEDS: *HR* Heparin 5,000 UNIT/ML VIAL SQ SCH ×2 (06:25→17:51)
[2019-06-14] MEDS: tiZANidine 4 MG TABLET PO SCH ×3 (08:26→21:15)
[2019-06-14] MEDS: Aspirin 81 MG TAB.CHEW PO SCH (08:26)
[2019-06-14] MEDS: Lisinopril 20 MG TABLET PO SCH (08:27)
[2019-06-14] MEDS: Famotidine 20 MG TABLET PO SCH ×2 (08:27→21:15)
--- NOTE | 2019-06-14 09:38 | Internal Med Progress Note ---
Date of Encounter: 06/14/19 Time of Encounter: 09:38 - Assessment and plan (1) Right-sided cerebrovascular accident (CVA) Current Visit: Yes Status: Acute Assessment and plan: Patient is stable. (2) CAD (coronary artery disease) Current Visit: Yes Status: Acute Assessment and plan: She is doing well without signs or symptoms. Qualifiers: Coronary Disease-Associated Artery/Lesion type: unspecified vessel or lesion type [place] vs. transplanted heart: [place] heart Associated angina: without angina Qualified Code(s): I25.10 - Atherosclerotic heart disease of [place] coronary artery without angina pectoris (3) Hypertension Current Visit: Yes Status: Acute Assessment and plan: Marginally controlled. Qualifiers: Hypertension type: essential hypertension Qualified Code(s): I10 - Essential (primary) hypertension (4) Adjustment disorder with depressed mood Current Visit: Yes Status: Acute Assessment and plan: Seemingly stable. (5) Pain in both knees Current Visit: Yes Status: Acute Qualifiers: Chronicity: chronic Qualified Code(s): M25.561 - Pain in right knee; M25.562 - Pain in left knee; G89.29 - Other chronic pain - Subjective Interval history: Patient is without complaint. She has no problems and states that her bowels and bladder are moving well. Patient has no complaint of chest discomfort, dyspnea, orthopnea, palpitations, nausea or vomiting, constipation or diarrhea, other changes in bowel habits, difficulty with urination, rash or itching, or other new complaints, except as mentioned above. Review of systems is otherwise negative. I discussed management of patient's care with nursing staff. - Constitutional Vitals: Temp Pulse Resp BP Pulse Ox 98.4 F 69 14 161/70 94 06/14/19 07:43 06/14/19 07:43 06/14/19 07:43 06/14/19 07:43 06/14/19 07:43 Exam: Examination: (Except as mentioned above): General: In no apparent distress. Alert and oriented 3. Nondiaphoretic. Head: Atraumatic and normocephalic. Respiratory: No use of accessory muscles. Lungs are clear throughout. Normal airflow. Cardiovascular: Regular rate and rhythm without murmur appreciated. Abdomen: Bowel sounds are normal. No hepatosplenomegaly mass or tenderness appreciated. Obese and therefore difficult to palpate deeply. Patient is examined upright in chair and this also limits exam. Extremities: No cyanosis clubbing or edema. Skin: Warm and non-diaphoretic with no new lesions noted. Internal Medicine: Result - Labs CBC & Chem 7: 06/09/19 05:50 06/09/19 05:50 Consult Discharge Plan - Plan Referrals: NONE,PCP [Primary Care Provider] -
[2019-06-15] MEDS: *HR* Heparin 5,000 UNIT/ML VIAL SQ SCH ×2 (06:49→17:51)
[2019-06-15] MEDS: Famotidine 20 MG TABLET PO SCH ×2 (08:23→20:20)
[2019-06-15] MEDS: Aspirin 81 MG TAB.CHEW PO SCH (08:23)
[2019-06-15] MEDS: Lisinopril 20 MG TABLET PO SCH (08:24)
[2019-06-15] MEDS: tiZANidine 4 MG TABLET PO SCH ×3 (08:24→20:20)
--- NOTE | 2019-06-15 12:22 | Internal Med Progress Note ---
Date of Encounter: 06/15/19 Time of Encounter: 12:20 - Assessment and plan (1) Right-sided cerebrovascular accident (CVA) Current Visit: Yes Status: Acute Assessment and plan: Patient is stable. Therapies to continue. (2) CAD (coronary artery disease) Current Visit: Yes Status: Acute Assessment and plan: Clinically stable without current signs or symptoms. Qualifiers: Coronary Disease-Associated Artery/Lesion type: unspecified vessel or lesion type [place] vs. transplanted heart: [place] heart Associated angina: without angina Qualified Code(s): I25.10 - Atherosclerotic heart disease of [place] coronary artery without angina pectoris (3) Hypertension Current Visit: Yes Status: Acute Assessment and plan: Adequate control. Qualifiers: Hypertension type: essential hypertension Qualified Code(s): I10 - Essential (primary) hypertension (4) Adjustment disorder with depressed mood Current Visit: Yes Status: Acute Assessment and plan: She seems to be improving. (5) Pain in both knees Current Visit: Yes Status: Acute Assessment and plan: No current complaints. Qualifiers: Chronicity: chronic Qualified Code(s): M25.561 - Pain in right knee; M25.562 - Pain in left knee; G89.29 - Other chronic pain - Subjective Interval history: Patient is without complaint. She states that she needs to move her bowels, during exam and nursing is taking her to the restroom. No other complaints. Patient has no complaint of chest discomfort, dyspnea, orthopnea, palpitations, nausea or vomiting, constipation or diarrhea, other changes in bowel habits, difficulty with urination, rash or itching, or other new complaints, except as mentioned above. Review of systems is otherwise negative. I discussed management of patient's care with nursing staff. - Constitutional Vitals: Temp Pulse Resp BP Pulse Ox 98.1 F 61 14 159/70 95 06/15/19 07:54 06/15/19 07:54 06/15/19 07:54 06/15/19 07:54 06/15/19 07:54 Exam: Examination: (Except as mentioned above): General: In no apparent distress. Alert and oriented 3. Nondiaphoretic. Head: Atraumatic and normocephalic. Respiratory: No use of accessory muscles. Lungs are clear throughout. Normal airflow. Cardiovascular: Regular rate and rhythm without murmur appreciated. Abdomen: Bowel sounds are normal. No hepatosplenomegaly mass or tenderness appreciated. Obese and therefore difficult to palpate deeply. Patient is examined upright in chair and this also limits exam. Extremities: No cyanosis clubbing or edema. Skin: Warm and non-diaphoretic with no new lesions noted. Internal Medicine: Result - Labs CBC & Chem 7: 06/09/19 05:50 06/09/19 05:50 Consult Discharge Plan - Plan Referrals: NONE,PCP [Primary Care Provider] -
[2019-06-15] MEDS: Acetaminophen 325 MG TABLET PO PRN (20:21)
[2019-06-16] MEDS: *HR* Heparin 5,000 UNIT/ML VIAL SQ SCH ×2 (04:52→17:39)
[2019-06-16] MEDS: Lisinopril 20 MG TABLET PO SCH (08:29)
[2019-06-16] MEDS: Famotidine 20 MG TABLET PO SCH ×2 (08:29→21:11)
[2019-06-16] MEDS: Aspirin 81 MG TAB.CHEW PO SCH (08:29)
[2019-06-16] MEDS: tiZANidine 4 MG TABLET PO SCH ×3 (08:30→21:12)
--- NOTE | 2019-06-16 09:31 | Internal Med Progress Note ---
Date of Encounter: 06/16/19 Time of Encounter: 09:29 - Assessment and plan (1) Right-sided cerebrovascular accident (CVA) Current Visit: Yes Status: Acute Assessment and plan: Patient continues to have left upper extremity remaining mostly flaccid. Left lower extremity shows improvement in muscle strength with patient reporting that she has been able to bear weight with the left leg during therapy. Right extremities with 5/5 muscle strength. Dysarthria has improved Continued slight left facial droop. We will evaluate patient's current muscle relaxants due to reports from therapy that she has been having difficulty with range of motion of left leg due to muscle contraction. We will continue with current plan of care and will continue with current therapy. (2) CAD (coronary artery disease) Current Visit: Yes Status: Acute Assessment and plan: No acute issues. Patient continues with a slight systolic murmur. Denies any chest discomforts or palpitations. Vital signs are stable. We will continue with current plan of care and medications. Qualifiers: Coronary Disease-Associated Artery/Lesion type: unspecified vessel or lesion type [place] vs. transplanted heart: [place] heart Associated angina: without angina Qualified Code(s): I25.10 - Atherosclerotic heart disease of [place] coronary artery without angina pectoris (3) Hypertension Current Visit: Yes Status: Acute Assessment and plan: Vital signs remained stable. We will continue with a systolic blood pressure goal of less than 160. We will continue with current medications Qualifiers: Hypertension type: essential hypertension Qualified Code(s): I10 - Essential (primary) hypertension - Time Spent With Patient less than 15 minutes - Subjective Interval history: Appears relaxed currently denies any discomforts or shortness of breath. Patient states that she continues to have an increase in strength to her left leg which she she has been able to bear weight and has ambulated with assist for a short distance. Patient denies any other issues and states that therapy has been progressing well. States disappointment that she has not had any noted improvement to the motor function of the left arm. Therapy states that patient's left leg at times remains slightly contracted and difficult for her to mobilize. - Constitutional Vitals: Temp Pulse Resp BP Pulse Ox 98.3 F 62 16 144/69 96 06/16/19 07:40 06/16/19 07:40 06/16/19 07:40 06/16/19 07:40 06/16/19 07:40 General appearance: Present: A&O X 3, pleasant, no acute distress, answers questions appropriately - Head Head exam: Present: atraumatic, normocephalic - Eye Eye exam: Present: PERRL, conjuntiva pink, sclera anicteric Pupils: Present: PERRL - Neck Neck exam general surgery: Present: supple, trachea midline. Absent: l ymphadenopathy - Respiratory Respiratory exam: Present: decreased breath sounds, CTAB. Absent: accessory muscle use, rales, rhonchi, wheezes - Cardiovascular Cardiovascular exam: Present: RRR, +S1, +S2. Absent: diastolic murmur, gallop, rubs, systolic murmur - GI/Abdominal GI/Abdominal exam: Present: normal bowel sounds, soft, no peritoneal signs. Absent: distended, tenderness - Extremities Exam Extremities exam: Present: warm, radial pulses palpable and symmetrical. Absent: calf tenderness, cyanotic, pedal edema - Neurological Exam Neurological exam: Present: oriented X3, facial droop, speech deficit. Absent: pronater drift Additional comments: Patient continues to have slight left facial droop and dysarthria. Left arm remains flaccid and 0/5 muscle strength. Left leg with 4/5 muscle strength. Right extremities with 5/5 muscle strength - Skin Skin exam: Present: dry, intact Internal Medicine: Result - Labs CBC & Chem 7: 06/09/19 05:50 06/09/19 05:50 Consult Discharge Plan - Plan Referrals: NONE,PCP [Primary Care Provider] -
[2019-06-16 11:25] LABS: Hematocrit 40.2 % (35.3-44.9); Hemoglobin 13.5 g/dL (11.5-15.4); Mean Corpuscular HGB Conc 33.6 g/dL (31.6-35.5); Mean Corpuscular Volume 89.3 fL (83.0-100.0); Mean Platelet Volume 10.1 fL (9.4-12.4); Platelet Count 204 K/mcL (140-400); Red Cell Distribution Width 14.2 % (11.5-14.5)
[2019-06-16 11:39] LABS: BUN/Creatinine Ratio 31 (6-26); Blood Urea Nitrogen 22 mg/dL (8-23); Calcium 9.2 mg/dL (8.6-10.3); Carbon Dioxide 29 mEq/L (23-29); Chloride 104 mEq/L (98-107); Glucose 107 mg/dL (70-105); Osmolality,Calculated 294 (280-300); Potassium 3.9 mEq/L (3.5-5.1); Sodium 140 mEq/L (136-145); eGFR For African Americans > 60 (> 60); eGFR For Non-African Americans > 60 (> 60)
--- NOTE | 2019-06-16 15:15 | Rehab Psychology Progress Note ---
Date of Encounter: 06/16/19 Time of Encounter: 10:00 Subjective - Patient Report Patient Report: More calm and pleasant today. Discussed DC plans to ECF and she was positive about this. Able to outline pros and cons. - Symptoms Symptoms: Decrease in tearfulness. Objective - WHODAS Functional Impairment Concentration, Problem-solving, Communication: Mild Social Functioning: Mild - Comments Functional Status Comments: Conversation was productive and she is able to discuss concerns and fears wi thout tearing up. More realistic about current situation and needs. ID coping as prayer. - Mental Status Mental Status Changes: OX3. Sustained topic of conversation. Assessment and Plan - Diagnosis (1) Adjustment disorder with depressed mood - Response to Treatment Response to Treatment: Improved - Treatment Plan Treatment Plan Recommendations: Continue Current Plan/Goals Next Session Date: 06/25/19 Procedures - Intervention Interventions: Cognitive/Behavioral Therapy - Modality Modality: Psychotherapy 30 minutes - Participants Therapy Participant: Patient - Session Time Session Start Time: 10:00 Session Stop Time: 10:30
[2019-06-17] MEDS: *HR* Heparin 5,000 UNIT/ML VIAL SQ SCH ×2 (05:50→17:02)
[2019-06-17] MEDS: Famotidine 20 MG TABLET PO SCH ×2 (08:06→21:49)
[2019-06-17] MEDS: Lisinopril 20 MG TABLET PO SCH (08:07)
[2019-06-17] MEDS: tiZANidine 4 MG TABLET PO SCH ×4 (08:07→21:50)
[2019-06-17] MEDS: Aspirin 81 MG TAB.CHEW PO SCH (08:07)
--- NOTE | 2019-06-17 10:22 | Event Note ---
Date of Encounter: 06/17/19 Time of Encounter: 10:21 Patient not seen today because she is a podiatry appointment. No new issues per nursing or therapy.
[2019-06-17] MEDS: Acetaminophen 325 MG TABLET PO PRN (21:50)
[2019-06-18] MEDS: Acetaminophen 325 MG TABLET PO PRN ×2 (05:15→13:53)
[2019-06-18] MEDS: *HR* Heparin 5,000 UNIT/ML VIAL SQ SCH ×2 (05:15→17:37)
[2019-06-18] MEDS: Famotidine 20 MG TABLET PO SCH ×2 (08:13→21:59)
[2019-06-18] MEDS: Aspirin 81 MG TAB.CHEW PO SCH (08:13)
--- NOTE | 2019-06-18 08:13 | Internal Med Progress Note ---
Date of Encounter: 06/18/19 Time of Encounter: 08:12 - Assessment and plan (1) Right-sided cerebrovascular accident (CVA) Current Visit: Yes Status: Acute Assessment and plan: Patient is stable and continued to improve slowly. No new deficits. Therapies to continue. (2) CAD (coronary artery disease) Current Visit: Yes Status: Acute Assessment and plan: Clinically stable. Qualifiers: Coronary Disease-Associated Artery/Lesion type: unspecified vessel or lesion type [place] vs. transplanted heart: [place] heart Associated angina: without angina Qualified Code(s): I25.10 - Atherosclerotic heart disease of [place] coronary artery without angina pectoris (3) Hypertension Current Visit: Yes Status: Acute Assessment and plan: Controlled. Qualifiers: Hypertension type: essential hypertension Qualified Code(s): I10 - Essential (primary) hypertension (4) Adjustment disorder with depressed mood Current Visit: Yes Status: Acute Assessment and plan: Clinically, she seems to be improving. (5) Pain in both knees Current Visit: Yes Status: Acute Assessment and plan: Patient with fewer complaints over the last week. Qualifiers: Chronicity: chronic Qualified Code(s): M25.561 - Pain in right knee; M25.562 - Pain in left knee; G89.29 - Other chronic pain - Subjective Interval history: Patient is without complaint. Bowels move this morning. She is pleased with progress with therapy. She has minimal function of the left elbow. She states that she was too sleepy with increased dose of her muscle relaxant, yesterday. She will let us know if this should be reduced over the next day or 2. Patient has no complaint of chest discomfort, dyspnea, orthopnea, palpitations, nausea or vomiting, constipation or diarrhea, other changes in bowel habits, difficulty with urination, rash or itching, or other new complaints, except as mentioned above. Review of systems is otherwise negative. I discussed management of patient's care with nursing staff. - Constitutional Vitals: Temp Pulse Resp BP Pulse Ox 98.5 F 61 15 143/70 94 06/18/19 07:00 06/18/19 07:00 06/18/19 07:00 06/18/19 07:00 06/18/19 07:00 Exam: General: In no apparent distress. Alert and oriented 3. Nondiaphoretic. Head: Atraumatic and normocephalic. Respiratory: No use of accessory muscles. Lungs are clear throughout. Normal airflow. Cardiovascular: Regular rate and rhythm without murmur appreciated. Abdomen: Bowel sounds are normal. No hepatosplenomegaly mass or tenderness appreciated. Obese and therefore difficult to palpate deeply. Extremities: No cyanosis clubbing or edema. Patient is examined upright in chair and this also limits exam. Skin: Warm and non-diaphoretic with no new lesions noted. Neurologic: She has spastic flexion but may have minimal left grasp, as well. Left lower extremity has ataxic but present strength at about 4 minus/5. Internal Medicine: Result - Labs CBC & Chem 7: 06/16/19 11:24 06/16/19 11:24 Consult Discharge Plan - Plan Referrals: NONE,PCP [Primary Care Provider] -
[2019-06-18] MEDS: Lisinopril 20 MG TABLET PO SCH (08:14)
[2019-06-18] MEDS: tiZANidine 4 MG TABLET PO SCH ×4 (08:16→21:59)
[2019-06-19] MEDS: *HR* Heparin 5,000 UNIT/ML VIAL SQ SCH ×2 (05:28→17:39)
[2019-06-19] MEDS: Lisinopril 20 MG TABLET PO SCH (08:18)
[2019-06-19] MEDS: Famotidine 20 MG TABLET PO SCH ×2 (08:19→20:27)
[2019-06-19] MEDS: tiZANidine 4 MG TABLET PO SCH ×4 (08:19→20:28)
[2019-06-19] MEDS: Aspirin 81 MG TAB.CHEW PO SCH (08:19)
--- NOTE | 2019-06-19 09:37 | Internal Med Progress Note ---
Date of Encounter: 06/19/19 Time of Encounter: 09:35 - Assessment and plan (1) Right-sided cerebrovascular accident (CVA) Current Visit: Yes Status: Acute Assessment and plan: Patient continues to have left upper extremity remaining mostly flaccid. Left lower extremity shows improvement in muscle strength with patient reporting that she has been able to bear weight with the left leg during therapy. Right extremities with 5/5 muscle strength. Dysarthria has improved Continued slight left facial droop. We will evaluate patient's current muscle relaxants due to reports from therapy that she has been having difficulty with range of motion of left leg due to muscle contraction. We will continue with current plan of care and will continue with current therapy. Patient being prepared for possible discharge next week (2) CAD (coronary artery disease) Current Visit: Yes Status: Acute Assessment and plan: No acute issues. Patient continues with a slight systolic murmur. Denies any chest discomforts or palpitations. Vital signs are stable. We will continue with current plan of care and medications. Qualifiers: Coronary Disease-Associated Artery/Lesion type: unspecified vessel or lesion type [place] vs. transplanted heart: [place] heart Associated angina: without angina Qualified Code(s): I25.10 - Atherosclerotic heart disease of [place] coronary artery without angina pectoris (3) Hypertension Current Visit: Yes Status: Acute Assessment and plan: Vital signs remained stable. We will continue with a systolic blood pressure goal of less than 160. We will continue with current medications Qualifiers: Hypertension type: essential hypertension Qualified Code(s): I10 - Essential (primary) hypertension - Time Spent With Patient less than 15 minutes - Subjective Interval history: Appears relaxed currently denies any discomforts or shortness of breath. Patient states that she continues to have an increase in strength to her left leg which she she has been able to bear weight and has ambulated with assist for a short distance. Patient denies any other issues and states that therapy has been progressing well. States disappointment that she has not had any noted improvement to the motor function of the left arm. - Constitutional Vitals: Temp Pulse Resp BP Pulse Ox 98.1 F 68 16 169/74 95 06/19/19 07:00 06/19/19 07:00 06/19/19 07:00 06/19/19 07:00 06/19/19 07:00 General appearance: Present: A&O X 3, pleasant, no acute distress, answers questions appropriately - Head Head exam: Present: atraumatic, normocephalic - Eye Eye exam: Present: PERRL, conjuntiva pink, sclera anicteric Pupils: Present: PERRL - Neck Neck exam general surgery: Present: supple, trachea midline. Absent: lymphadenopathy - Respiratory Respiratory exam: Present: decreased breath sounds, CTAB. Absent: accessory muscle use, rales, rhonchi, wheezes - Cardiovascular Cardiovascular exam: Present: RRR, +S1, +S2. Absent: diastolic murmur, gallop, rubs, systolic murmur - GI/Abdominal GI/Abdominal exam: Present: normal bowel sounds, soft, no peritoneal signs. Absent: distended, tenderness - Extremities Exam Extremities exam: Present: warm, radial pulses palpable and symmetrical. Absent: calf tenderness, cyanotic, pedal edema - Neurological Exam Neurological exam: Present: oriented X3, facial droop, speech deficit. Absent: pronater drift Additional comments: Patient continues with left facial droop and dysarthria. Slight improvement with dysarthria over the past several weeks. Patient continues with left upper extremity began flaccid. Left lower extremity with 4/5 muscle strength. Patient continues with gross motor movement of left lower extremity. Right extremities with 5/5 muscle strength. - Skin Skin exam: Present: dry, intact Internal Medicine: Result - Labs CBC & Chem 7: 06/16/19 11:24 06/16/19 11:24 Consult Discharge Plan - Plan Referrals: NONE,PCP [Primary Care Provider] -
[2019-06-20] MEDS: *HR* Heparin 5,000 UNIT/ML VIAL SQ SCH ×2 (05:21→17:15)
[2019-06-20] MEDS: Aspirin 81 MG TAB.CHEW PO SCH (08:09)
[2019-06-20] MEDS: Lisinopril 20 MG TABLET PO SCH (08:09)
[2019-06-20] MEDS: Famotidine 20 MG TABLET PO SCH ×2 (08:09→20:03)
[2019-06-20] MEDS: tiZANidine 4 MG TABLET PO SCH ×4 (08:09→20:03)
--- NOTE | 2019-06-20 12:29 | Internal Med Progress Note ---
Date of Encounter: 06/20/19 Time of Encounter: 12:27 - Assessment and plan (1) Right-sided cerebrovascular accident (CVA) Current Visit: Yes Status: Acute Assessment and plan: Continue PT, OT and ST. Will follow progress. No new neurological deficits at this time. Follow up with neurologist as scheduled. (2) CAD (coronary artery disease) Current Visit: Yes Status: Acute Assessment and plan: Stable. Denies chest pain. Monitor. Continue current medication. Qualifiers: Coronary Disease-Associated Artery/Lesion type: unspecified vessel or lesion type [place] vs. transplanted heart: [place] heart Associated angina: without angina Qualified Code(s): I25.10 - Atherosclerotic heart disease of [place] coronary artery without angina pectoris (3) Hypertension Current Visit: Yes Status: Acute Assessment and plan: Controlled with current medication. Monitor blood pressure. Qualifiers: Hypertension type: essential hypertension Qualified Code(s): I10 - Essential (primary) hypertension (4) Muscle spasticity Current Visit: Yes Status: Acute Assessment and plan: improving. continue tizanidine. states she is feeling a little tired since dosage was increased. - Time Spent With Patient less than 15 minutes - Subjective Interval history: sitting in [facility]. Participating well with therapy. daughter at side. Maintaining appetite and hydration. Denies any new neurological deficits, fever, chills, nausea vomiting or diarrhea. Denies shortness of breath or chest pain. states she slept well last night. propels self in [facility]. - Constitutional Vitals: Temp Pulse Resp BP Pulse Ox 98.0 F 64 18 147/69 97 06/20/19 07:58 06/20/19 07:58 06/20/19 07:58 06/20/19 07:58 06/20/19 07:58 General appearance: Present: A&O X 3, pleasant, no acute distress, answers questions appropriately Exam: left facial droop - Head Head exam: Present: atraumatic, normocephalic - Eye Eye exam: Present: PERRL, conjuntiva pink, sclera anicteric Pupils: Present: PERRL - Neck Neck exam general surgery: Present: supple, trachea midline. Absent: lymphadenopathy - Respiratory Respiratory exam: Present: CTAB. Absent: accessory muscle use, rales, rhonchi, wheezes - Cardiovascular Cardiovascular exam: Present: RRR, +S1, +S2. Absent: diastolic murmur, gallop, rubs, systolic murmur - GI/Abdominal GI/Abdominal exam: Present: normal bowel sounds, soft, no peritoneal signs. Absent: distended, tenderness - Extremities Exam Extremities exam: Present: warm, radial pulses palpable and symmetrical. Absent: calf tenderness, cyanotic, pedal edema Additional comments: left sided hemiplegia - Neurological Exam Neurological exam: Present: CN II-XII intact, oriented X3, no focal deficits. Absent: pronater drift, facial droop, speech deficit - Skin Skin exam: Present: dry, intact Internal Medicine: Result - Labs CBC & Chem 7: 06/16/19 11:24 06/16/19 11:24 Consult Discharge Plan - Plan Referrals: NONE,PCP [Primary Care Provider] -
[2019-06-21] MEDS: tiZANidine 4 MG TABLET PO SCH ×4 (08:54→20:57)
[2019-06-21] MEDS: Lisinopril 20 MG TABLET PO SCH (08:54)
[2019-06-21] MEDS: *HR* Heparin 5,000 UNIT/ML VIAL SQ SCH ×2 (08:54→19:24)
[2019-06-21] MEDS: Famotidine 20 MG TABLET PO SCH ×2 (08:54→20:57)
[2019-06-21] MEDS: Aspirin 81 MG TAB.CHEW PO SCH (08:54)
--- NOTE | 2019-06-21 08:54 | Internal Med Progress Note ---
Date of Encounter: 06/21/19 Time of Encounter: 08:50 - Assessment and plan (1) Right-sided cerebrovascular accident (CVA) Current Visit: Yes Status: Acute Assessment and plan: Seems to be doing fine and improving Left arm paralysed , facial deviation present slowly improving. Getting rehab. (2) CAD (coronary artery disease) Current Visit: Yes Status: Chronic Assessment and plan: No chest pain she is able to tolerate exercise well continue to follow continue present meds NO angina at the present time Qualifiers: Coronary Disease-Associated Artery/Lesion type: unspecified vessel or lesion type [place] vs. transplanted heart: [place] heart Associated angina: without angina Qualified Code(s): I25.10 - Atherosclerotic heart disease of [place] coronary artery without angina pectoris (3) Hypertension Current Visit: Yes Status: Chronic Assessment and plan: On meds s table at the present time adjust meds as needed Labs noted stable Qualifiers: Hypertension type: essential hypertension Qualified Code(s): I10 - Essential (primary) hypertension - Time Spent With Patient 25 - 35 minutes - Subjective Interval history: seen as cross coverage. No acute issues at the present time she is getting rehab and seems to be imroving NO chest pain SOB nausea vomiting or fever - Constitutional Vitals: Temp Pulse Resp BP Pulse Ox 97.6 F 74 18 157/67 96 06/21/19 07:41 06/21/19 07:41 06/21/19 07:41 06/21/19 07:41 06/21/19 07:41 General appearance: Present: A&O X 3, pleasant, no acute distress, answers questions appropriately - Head Head exam: Present: atraumatic - Eye Eye exam: Present: EOMI, PERRL. Absent: conjuntiva pink, sclera anicteric - ENT ENT exam: Present: normal oropharynx. Absent: mucous membranes dry - Neck Neck exam general surgery: Present: supple. Absent: tenderness, nuchal rigidity - Respiratory Respiratory exam: Present: CTAB. Absent: chest wall tenderness, respiratory distress, rhonchi, stridor, wheezes, tachypnea - Cardiovascular Cardiovascular exam: Present: RRR, +S1, +S2. Absent: systolic murmur, tachycardia - GI/Abdominal GI/Abdominal exam: Present: normal bowel sounds, soft. Absent: guarding, rigid - Extremities Exam Extremities exam: Present: full ROM. Absent: joint swelling, pedal edema - Back Exam Back exam: Present: normal inspection. Absent: muscle spasm, paraspinal tenderness, rash noted - Neurological Exam Neurological exam: Present: alert, oriented X3, facial droop. Absent: speech deficit Additional comments: 3,7,10 and 11the nerve involvement Negative trapezium motor function Facial deviations towards right side Decrease eye rotation on the left side Lower motor both sides present left side weaker then right side Internal Medicine: Result - Labs CBC & Chem 7: 06/16/19 11:24 06/16/19 11:24 Consult Discharge Plan - Plan Referrals: NONE,PCP [Primary Care Provider] -
[2019-06-21] MEDS: Mag Hydrox/Al Hydrox/Simeth 30 ML UDC PO PRN (11:16)
[2019-06-21] MEDS: Acetaminophen 325 MG TABLET PO PRN ×2 (11:23→20:57)
[2019-06-21] MEDS ORDERED: traMADol 50 MG TABLET PO PRN (12:04)
[2019-06-22] MEDS: *HR* Heparin 5,000 UNIT/ML VIAL SQ SCH ×2 (05:46→18:11)
--- NOTE | 2019-06-22 08:23 | Internal Med Progress Note ---
Date of Encounter: 06/22/19 Time of Encounter: 08:20 - Assessment and plan (1) Right-sided cerebrovascular accident (CVA) Current Visit: Yes Status: Acute Assessment and plan: stable and no further worsening getting better with PT> (2) CAD (coronary artery disease) Current Visit: Yes Status: Chronic Assessment and plan: stable no chest pain continue to monitor Qualifiers: Coronary Disease-Associated Artery/Lesion type: unspecified vessel or lesion type [place] vs. transplanted heart: [place] heart Associated angina: without angina Qualified Code(s): I25.10 - Atherosclerotic heart disease of [place] coronary artery without angina pectoris (3) Hypertension Current Visit: Yes Status: Chronic Assessment and plan: Systolic noted to be some what higher . ON Coreg small dose increase and followup target close to 140 systolic Qualifiers: Hypertension type: essential hypertension Qualified Code(s): I10 - Essential (primary) hypertension - Subjective Interval history: seen as cross coverage. No acute issues at the present time had good night ad slept well She had some dyspepsia last evening which got better with meds .NO other issues at the present time - Constitutional Vitals: Temp Pulse Resp BP Pulse Ox 98.7 F 64 16 175/70 97 06/22/19 07:56 06/22/19 07:56 06/22/19 07:56 06/22/19 07:56 06/22/19 07:56 General appearance: Present: A&O X 3, pleasant, no acute distress, answers questions appropriately - Head Head exam: Present: atraumatic - Eye Eye exam: Present: EOMI, PERRL Pupils: Present: PERRL - Neck Neck exam general surgery: Present: full ROM, supple. Absent: tenderness, nuchal rigidity - Respiratory Respiratory exam: Present: CTAB. Absent: respiratory distress, rhonchi, stridor, wheezes, tachypnea - Cardiovascular Cardiovascular exam: Present: RRR, +S1, +S2. Absent: bradycardia, systolic murmur - GI/Abdominal GI/Abdominal exam: Present: normal bowel sounds, soft. Absent: rebound, rigid, splenomegaly, tenderness - Extremities Exam Extremities exam: Absent: pedal edema, tenderness - Back Exam Back exam: Absent: muscle spasm, paraspinal tenderness, tenderness - Neurological Exam Neurological exam: Present: oriented X3, facial droop. Absent: speech deficit Additional comments: 3rd, 7, 11 nerve involvement motor function left upper arm paralyses. left lower leg 3/5 right side 5/5 no change in neurological examination Internal Medicine: Result - Labs CBC & Chem 7: 06/16/19 11:24 06/16/19 11:24 Consult Discharge Plan - Plan Referrals: NONE,PCP [Primary Care Provider] -
[2019-06-22] MEDS: tiZANidine 4 MG TABLET PO SCH ×4 (09:41→21:04)
[2019-06-22] MEDS: Famotidine 20 MG TABLET PO SCH ×2 (09:41→21:04)
[2019-06-22] MEDS: Aspirin 81 MG TAB.CHEW PO SCH (09:41)
[2019-06-22] MEDS: Lisinopril 20 MG TABLET PO SCH (09:41)
[2019-06-22] MEDS: Acetaminophen 325 MG TABLET PO PRN (21:03)
[2019-06-23] MEDS: *HR* Heparin 5,000 UNIT/ML VIAL SQ SCH ×2 (06:25→17:03)
[2019-06-23] MEDS: Aspirin 81 MG TAB.CHEW PO SCH (08:05)
[2019-06-23] MEDS: tiZANidine 4 MG TABLET PO SCH ×4 (08:05→20:20)
[2019-06-23] MEDS: Lisinopril 20 MG TABLET PO SCH (08:05)
[2019-06-23] MEDS: Famotidine 20 MG TABLET PO SCH ×2 (08:05→20:21)
--- NOTE | 2019-06-23 08:05 | Internal Med Progress Note ---
Date of Encounter: 06/23/19 Time of Encounter: 08:02 - Assessment and plan (1) Right-sided cerebrovascular accident (CVA) Current Visit: Yes Status: Acute Assessment and plan: stable, no further worsening getting better with PT> (2) CAD (coronary artery disease) Current Visit: Yes Status: Chronic Assessment and plan: stable, dong fine no chest pain no chest pain continue to monitor Qualifiers: Coronary Disease-Associated Artery/Lesion type: unspecified vessel or lesion type [place] vs. transplanted heart: [place] heart Associated angina: without angina Qualified Code(s): I25.10 - Atherosclerotic heart disease of [place] coronary artery without angina pectoris (3) Hypertension Current Visit: Yes Status: Chronic Assessment and plan: Meds increased BP stable today asymptomatic Adjust as needed Qualifiers: Hypertension type: essential hypertension Qualified Code(s): I10 - Essential (primary) hypertension - Subjective Interval history: seen as cross coverage. No acute issues at the present time had good night ad s lept well No new issues - Constitutional Vitals: Temp Pulse Resp BP Pulse Ox 98.3 F 60 16 105/55 96 06/22/19 19:40 06/22/19 19:40 06/22/19 19:40 06/22/19 19:40 06/22/19 19:40 General appearance: Present: A&O X 3, pleasant, no acute distress, answers questions appropriately - Head Head exam: Present: atraumatic - Eye Eye exam: Present: EOMI, PERRL. Absent: conjuntiva pink, sclera anicteric Pupils: Present: PERRL - Neck Neck exam general surgery: Present: full ROM, supple. Absent: tenderness, nuchal rigidity - Respiratory Respiratory exam: Present: CTAB. Absent: respiratory distress, rhonchi, stridor, wheezes, tachypnea - Cardiovascular Cardiovascular exam: Present: RRR, +S1, +S2. Absent: bradycardia, systolic murmur - GI/Abdominal GI/Abdominal exam: Present: normal bowel sounds, soft. Absent: guarding, rebound, rigid, no peritoneal signs - Extremities Exam Extremities exam: Absent: pedal edema, tenderness - Neurological Exam Neurological exam: Present: oriented X3, facial droop. Absent: speech deficit Additional comments: left upper are weaker then leg Facial deviation left side trapezium weaker then right side Necrological stable no new change Internal Medicine: Result - Labs CBC & Chem 7: 06/16/19 11:24 06/16/19 11:24 Consult Discharge Plan - Plan Referrals: NONE,PCP [Primary Care Provider] -
[2019-06-23] MEDS: Acetaminophen 325 MG TABLET PO PRN (09:31)
[2019-06-24] MEDS: *HR* Heparin 5,000 UNIT/ML VIAL SQ SCH ×2 (05:53→17:53)
[2019-06-24] MEDS: Lisinopril 20 MG TABLET PO SCH (08:21)
[2019-06-24] MEDS: Famotidine 20 MG TABLET PO SCH ×2 (08:22→21:15)
[2019-06-24] MEDS: Aspirin 81 MG TAB.CHEW PO SCH (08:22)
[2019-06-24] MEDS: tiZANidine 4 MG TABLET PO SCH ×4 (08:22→21:15)
--- NOTE | 2019-06-24 10:15 | Internal Med Progress Note ---
Date of Encounter: 06/24/19 Time of Encounter: 10:13 - Assessment and plan (1) Right-sided cerebrovascular accident (CVA) Current Visit: Yes Status: Acute Assessment and plan: Continue PT, OT and ST. Will follow progress. No new neurological deficits at this time. Follow up with neurologist as scheduled. (2) CAD (coronary artery disease) Current Visit: Yes Status: Chronic Assessment and plan: Stable. Denies chest pain. Monitor. Continue current medication. Qualifiers: Coronary Disease-Associated Artery/Lesion type: unspecified vessel or lesion type [place] vs. transplanted heart: [place] heart Associated angina: without angina Qualified Code(s): I25.10 - Atherosclerotic heart disease of [place] coronary artery without angina pectoris (3) Hypertension Current Visit: Yes Status: Chronic Assessment and plan: Controlled with current medication. Monitor blood pressure. Qualifiers: Hypertension type: essential hypertension Qualified Code(s): I10 - Essential (primary) hypertension (4) Muscle spasticity Current Visit: Yes Status: Acute Assessment and plan: improving to left upper extremity. continue tizanidine. - Time Spent With Patient less than 15 minutes - Subjective Interval history: sitting in [facility]. Participating well with therapy. Maintaining appetite and hydration. Denies any new neurological deficits, fever, chills, nausea vomiting or diarrhea. Denies shortness of breath or chest pain. states she slept well last night. propels self in [facility]. - Constitutional Vitals: Temp Pulse Resp BP Pulse Ox 98.1 F 62 15 161/76 95 06/24/19 07:35 06/24/19 07:35 06/24/19 07:35 06/24/19 07:35 06/24/19 07:35 General appearance: Present: A&O X 3, pleasant, no acute distress, answers questions appropriately Exam: Left facial droop - Head Head exam: Present: atraumatic, normocephalic - Eye Eye exam: Present: PERRL, conjuntiva pink, sclera anicteric Pupils: Present: PERRL - Neck Neck exam general surgery: Present: supple, trachea midline. Absent: lymphadenopathy - Respiratory Respiratory exam: Present: CTAB. Absent: accessory muscle use, rales, rhonchi, wheezes - Cardiovascular Cardiovascular exam: Present: RRR, +S1, +S2. Absent: diastolic murmur, gallop, rubs, systolic murmur - GI/Abdominal GI/Abdominal exam: Present: normal bowel sounds, soft, no peritoneal signs. Absent: distended, tenderness - Extremities Exam Extremities exam: Present: warm, radial pulses palpable and symmetrical. Absent: calf tenderness, cyanotic, pedal edema Additional comments: Left hemiplegia - Neurological Exam Neurological exam: Present: CN II-XII intact, oriented X3, no focal deficits. Absent: pronater drift, facial droop, speech deficit - Skin Skin exam: Present: dry, intact Internal Medicine: Result - Labs CBC & Chem 7: 06/16/19 11:24 06/16/19 11:24 Consult Discharge Plan - Plan Referrals: NONE,PCP [Primary Care Provider] -
[2019-06-25] MEDS: *HR* Heparin 5,000 UNIT/ML VIAL SQ SCH ×2 (05:20→17:15)
[2019-06-25] MEDS: Aspirin 81 MG TAB.CHEW PO SCH (08:23)
[2019-06-25] MEDS: Lisinopril 20 MG TABLET PO SCH (08:23)
[2019-06-25] MEDS: Famotidine 20 MG TABLET PO SCH ×2 (08:23→21:06)
[2019-06-25] MEDS: tiZANidine 4 MG TABLET PO SCH ×4 (08:23→21:06)
--- NOTE | 2019-06-25 10:05 | Rehab Psychology Progress Note ---
Date of Encounter: 06/25/19 Time of Encounter: 09:30 Subjective - Patient Report Patient Report: Independently wheeled self in office. Smiling and stated she is pleased with her progress. Has been a little stressed with "all paperwork" - legal -PO, apt lease, medicaid. Stated she has been feeling better emotionally and less crying. Objective - WHODAS Functional Impairment Concentration, Problem-solving, Communication: Mild Mobility: Mild Social Functioning: Mild - Comments Functional Status Comments: Enjoyed her community outing and feeling more hopeful. Working on using right hand to write. - Mental Status Mental Status Changes: OX3. Stated less distracted and able to recall strategies for swallowing . Assessment and Plan - Diagnosis (1) Adjustment disorder with depressed mood - Response to Treatment Response to Treatment: Improved - Prognosis Prognosis: Excellent - Treatment Plan Treatment Plan Recommendations: Change Treatment Plan/Goals Changes in Treatment Plan Goals: Pt doing well emotionally and using strategies along with benefiting from medication for mood elevation. Noting good awareness and insight. Has adapted well and will see if new need arises per team/pt. Procedures - Intervention Interventions: Cognitive/Behavioral Therapy - Modality Modality: Psychotherapy 30 minutes - Participants Therapy Participant: Patient - Session Time Session Start Time: :30 Session Stop Time: 10:00
--- NOTE | 2019-06-25 11:25 | Internal Med Progress Note ---
Date of Encounter: 06/25/19 Time of Encounter: 11:23 - Assessment and plan (1) Right-sided cerebrovascular accident (CVA) Current Visit: Yes Status: Acute Assessment and plan: Patient continues to have left upper extremity remaining mostly flaccid. Left lower extremity shows improvement in muscle strength with patient reporting that she has been able to bear weight with the left leg during therapy. Right extremities with 5/5 muscle strength. Dysarthria has improved Continued slight left facial droop. We will continue with current plan of care and will continue with current therapy. Patient being prepared for possible discharge later this week (2) CAD (coronary artery disease) Current Visit: Yes Status: Chronic Assessment and plan: No acute issues. Patient continues with a slight systolic murmur. Denies any chest discomforts or palpitations. Vital signs are stable. We will continue with current plan of care and medications. Qualifiers: Coronary Disease-Associated Artery/Lesion type: unspecified vessel or lesion type [place] vs. transplanted heart: [place] heart Associated angina: without angina Qualified Code(s): I25.10 - Atherosclerotic heart disease of [place] coronary artery without angina pectoris (3) Hypertension Current Visit: Yes Status: Chronic Assessment and plan: Vital signs remained stable. We will continue with a systolic blood pressure goal of less than 160. We will continue with current medications Qualifiers: Hypertension type: essential hypertension Qualified Code(s): I10 - Essential (primary) hypertension - Time Spent With Patient less than 15 minutes - Subjective Interval history: Appears relaxed currently denies any discomforts or shortness of breath. Patient states that she continues to have an increase in strength to her left leg which she she has been able to bear weight and has ambulated with assist for a short distance. Patient denies any other issues and states that therapy has been progressing well. States disappointment that she has not had any noted improvement to the motor function of the left arm. Patient being prepared for possible discharge to nursing facility later this week - Constitutional Vitals: Temp Pulse Resp BP Pulse Ox 98.1 F 62 15 164/72 95 06/25/19 06:41 06/25/19 06:41 06/25/19 06:41 06/25/19 06:41 06/25/19 06:41 General appearance: Present: A&O X 3, pleasant, no acute distress, answers questions appropriately - Head Head exam: Present: atraumatic, normocephalic - Eye Eye exam: Present: PERRL, conjuntiva pink, sclera anicteric Pupils: Present: PERRL - Neck Neck exam general surgery: Present: supple, trachea midline. Absent: lymphadenopathy - Respiratory Respiratory exam: Present: CTAB. Absent: accessory muscle use, rales, rhonchi, wheezes - Cardiovascular Cardiovascular exam: Present: RRR, +S1, +S2. Absent: diastolic murmur, gallop, rubs, systolic murmur - GI/Abdominal GI/Abdominal exam: Present: normal bowel sounds, soft, no peritoneal signs. Absent: distended, tenderness - Extremities Exam Extremities exam: Present: warm, radial pulses palpable and symmetrical. Absent: calf tenderness, cyanotic, pedal edema - Neurological Exam Neurological exam: Present: CN II-XII intact, oriented X3, facial droop, speech deficit. Absent: pronater drift Additional comments: Patient continues with slight left facial droop and slight dysarthria. Left upper extremity remains flaccid 0/5 muscle strength. Left lower extremity with 4/5 muscle strength. Right extremities at 5/5 muscle strength - Skin Skin exam: Present: dry, intact Internal Medicine: Result - Labs CBC & Chem 7: 06/16/19 11:24 06/16/19 11:24 Consult Discharge Plan - Plan Referrals: NONE,PCP [Primary Care Provider] -
[2019-06-25] MEDS: Mag Hydrox/Al Hydrox/Simeth 30 ML UDC PO PRN (14:30)
[2019-06-25] MEDS: Acetaminophen 325 MG TABLET PO PRN (20:59)
[2019-06-26] MEDS: *HR* Heparin 5,000 UNIT/ML VIAL SQ SCH ×2 (05:47→17:24)
[2019-06-26] MEDS: Famotidine 20 MG TABLET PO SCH ×2 (08:07→21:18)
[2019-06-26] MEDS: Aspirin 81 MG TAB.CHEW PO SCH (08:07)
[2019-06-26] MEDS: Lisinopril 20 MG TABLET PO SCH (08:07)
[2019-06-26] MEDS: tiZANidine 4 MG TABLET PO SCH ×4 (08:07→21:18)
--- NOTE | 2019-06-26 09:33 | Internal Med Progress Note ---
Date of Encounter: 06/26/19 Time of Encounter: 09:31 - Assessment and plan (1) Right-sided cerebrovascular accident (CVA) Current Visit: Yes Status: Acute Assessment and plan: Patient continues to have left upper extremity remaining mostly flaccid. Left lower extremity shows improvement in muscle strength with patient reporting that she has been able to bear weight with the left leg during therapy and states she is able to ambulate greater than 80 feet while holding onto a rail for balance. Right extremities with 5/5 muscle strength. Dysarthria has improved Continued slight left facial droop. We will continue with current plan of care and will continue with current therapy. Patient being prepared for possible discharge later this week (2) CAD (coronary artery disease) Current Visit: Yes Status: Chronic Assessment and plan: No acute issues. Patient continues with a slight systolic murmur. Denies any chest discomforts or palpitations. Vital signs are stable. We will continue with current plan of care and medications. Qualifiers: Coronary Disease-Associated Artery/Lesion type: unspecified vessel or lesion type [place] vs. transplanted heart: [place] heart Associated angina: without angina Qualified Code(s): I25.10 - Atherosclerotic heart disease of [place] coronary artery without angina pectoris (3) Hypertension Current Visit: Yes Status: Chronic Assessment and plan: Vital signs remained stable. We will continue with a systolic blood pressure goal of less than 160. We will continue with current medications Qualifiers: Hypertension type: essential hypertension Qualified Code(s): I10 - Essential (primary) hypertension - Time Spent With Patient less than 15 minutes - Subjective Interval history: Appears relaxed currently denies any discomforts or shortness of breath. Patient states that she continues to have an increase in strength to her left leg which she she has been able to bear weight and has ambulated with assist for a short distance. Patient states that she was able to ambulate approximately 80 feet while holding onto the hand rails. Patient denies any other issues and states that therapy has been progressing well. States disappointment that she has not had any noted improvement to the motor function of the left arm. Patient being prepared for possible discharge to nursing facility later this week - Constitutional Vitals: Temp Pulse Resp BP Pulse Ox 98.3 F 63 16 166/65 94 06/26/19 07:06 06/26/19 07:06 06/26/19 07:06 06/26/19 07:06 06/26/19 07:06 General appearance: Present: A&O X 3, pleasant, no acute distress, answers questions appropriately - Head Head exam: Present: atraumatic, normocephalic - Eye Eye exam: Present: PERRL, conjuntiva pink, sclera anicteric Pupils: Present: PERRL - Neck Neck exam general surgery: Present: supple, trachea midline. Absent: lymphadenopathy - Respiratory Respiratory exam: Present: CTAB. Absent: accessory muscle use, rales, rhonchi, wheezes - Cardiovascular Cardiovascular exam: Present: RRR, +S1, +S2. Absent: diastolic murmur, gallop, rubs, systolic murmur - GI/Abdominal GI/Abdominal exam: Present: normal bowel sounds, soft, no peritoneal signs. Absent: distended, tenderness - Extremities Exam Extremities exam: Present: warm, radial pulses palpable and symmetrical. Absent: calf tenderness, cyanotic, pedal edema - Neurological Exam Neurological exam: Present: CN II-XII intact, oriented X3, facial droop, speech deficit. Absent: pronater drift Additional comments: Patient continues to have left facial droop and slight dysarthria. Left arm remains flaccid at 0/5. Left leg muscle strength at 4/5. Patient able to bear weight with left leg. Right extremities at 5/5 muscle strength - Skin Skin exam: Present: dry, intact Internal Medicine: Result - Labs CBC & Chem 7: 06/16/19 11:24 06/16/19 11:24 Consult Discharge Plan - Plan Referrals: NONE,PCP [Primary Care Provider] -
[2019-06-27] MEDS: *HR* Heparin 5,000 UNIT/ML VIAL SQ SCH ×2 (05:16→17:09)
[2019-06-27] MEDS ORDERED: cloNIDine HCl 0.1 MG TABLET PO PRN (08:17)
[2019-06-27] MEDS: Famotidine 20 MG TABLET PO SCH ×2 (08:50→21:15)
[2019-06-27] MEDS: Lisinopril 20 MG TABLET PO SCH (08:50)
[2019-06-27] MEDS: tiZANidine 4 MG TABLET PO SCH ×4 (08:50→21:15)
[2019-06-27] MEDS: Aspirin 81 MG TAB.CHEW PO SCH (08:50)
--- NOTE | 2019-06-27 09:24 | Internal Med Progress Note ---
Date of Encounter: 06/27/19 Time of Encounter: 09:22 - Assessment and plan (1) Right-sided cerebrovascular accident (CVA) Current Visit: Yes Status: Acute Assessment and plan: Patient continues to have left upper extremity remaining mostly flaccid. Left lower extremity shows improvement in muscle strength with patient reporting that she has been able to bear weight with the left leg during therapy and states she is able to ambulate greater than 80 feet while holding onto a rail for balance. Right extremities with 5/5 muscle strength. Dysarthria has improved Continued slight left facial droop. We will continue with current plan of care and will continue with current therapy. Patient being prepared for possible discharge later this week (2) CAD (coronary artery disease) Current Visit: Yes Status: Chronic Assessment and plan: No acute issues. Patient continues with a slight systolic murmur. Denies any chest discomforts or palpitations. Vital signs are stable. We will continue with current plan of care and medications. Qualifiers: Coronary Disease-Associated Artery/Lesion type: unspecified vessel or lesion type [place] vs. transplanted heart: [place] heart Associated angina: without angina Qualified Code(s): I25.10 - Atherosclerotic heart disease of [place] coronary artery without angina pectoris (3) Hypertension Current Visit: Yes Status: Chronic Assessment and plan: Vital signs remained stable. We will continue with a systolic blood pressure goal of less than 160. We will continue with current medications Qualifiers: Hypertension type: essential hypertension Qualified Code(s): I10 - Essential (primary) hypertension - Time Spent With Patient less than 15 minutes - Subjective Interval history: Appears relaxed currently denies any discomforts or shortness of breath. Patient did not prepare for possible discharge tomorrow. Patient states that she feels she is ready for discharge. - Constitutional Vitals: Temp Pulse Resp BP Pulse Ox 98.3 F 63 16 184/82 95 06/27/19 07:24 06/27/19 07:24 06/27/19 07:24 06/27/19 07:24 06/27/19 07:24 General appearance: Present: A&O X 3, pleasant, no acute distress, answers questions appropriately - Head Head exam: Present: atraumatic, normocephalic - Eye Eye exam: Present: PERRL, conjuntiva pink, sclera anicteric Pupils: Present: PERRL - Neck Neck exam general surgery: Present: supple, trachea midline. Absent: lymphadenopathy - Respiratory Respiratory exam: Present: decreased breath sounds, CTAB. Absent: accessory muscle use, rales, rhonchi, wheezes - Cardiovascular Cardiovascular exam: Present: RRR, +S1, +S2. Absent: diastolic murmur, gallop, rubs, systolic murmur - GI/Abdominal GI/Abdominal exam: Present: normal bowel sounds, soft, no peritoneal signs. Absent: distended, tenderness - Extremities Exam Extremities exam: Present: warm, radial pulses palpable and symmetrical. Absent: calf tenderness, cyanotic, pedal edema - Neurological Exam Neurological exam: Present: CN II-XII intact, oriented X3. Absent: pronater drift, facial droop, speech deficit Additional comments: Patient continues with slight left facial droop and slight dysarthria. Left arm remains flaccid with 0/5 muscle strength. Left leg with 4/5 muscle strength and patient is able to bear weight. Right extremities at 5/5 muscle strength - Skin Skin exam: Present: dry, intact Internal Medicine: Result - Labs CBC & Chem 7: 06/16/19 11:24 06/16/19 11:24 Consult Discharge Plan - Plan Referrals: NONE,PCP [Primary Care Provider] -
--- NOTE | 2019-06-27 10:22 | Physician Discharge Referral ---
Home Health/Hosp Referral Info Transfer to: Home Health Provider in Charge Post Discharge: PCP - Diagnosis (1) Right-sided cerebrovascular accident (CVA) Priority: Primary Status: Acute (2) CAD (coronary artery disease) Priority: Secondary Status: Chronic (3) Hypertension Priority: Secondary Status: Chronic - Respiratory Orders Smoking Cessation: Smoking cessation has been advised. For more information, call the [place] Tobacco Quit Line at 5-566-MFLW-NOW. - Diet/Nutrition Diet/Nutrition Orders: No Added Salt ([place]), Cardiac - Activity Activity Orders: Up ad kena, Walker - Services Needed Following services are medically necessary services: Nursing, Home Health Aide, Physical Therapy, Occupational Therapy - Transfer Medications Home Medications: Aspirin 81 mg PO DAILY 05/19/19 [History] Atorvastatin [Lipitor] 40 mg PO HS 05/19/19 [History] Carvedilol 3.125 mg PO BID 05/19/19 [History] Lisinopril [Zestril] 40 mg PO DAILY 05/19/19 [History] Allergies/Adverse Reactions: Allergy/AdvReac Type Severity Reaction Status Date / Time codeine Allergy Hives Verified 05/19/19 17:44 Certification: Further, I certify that my clinical findings support that this patient is homebound (i.e. absences from home require considerable and taxing effort and are for medical reasons or congregation services or infrequently or short duration when for other reasons) because: Homebound Reason: Leaving home requires considerable and taxing effort due to condition Attestation: My signature below is to certify that this patient is under my care and that I, or nurse practitioner, or a physician's unit assistant working with me, has a [id number] encounter with this patient.
--- NOTE | 2019-06-27 10:26 | Discharge Summary ---
Date of Encounter: 06/27/19 Time of Encounter: 10:23 - Discharge Diagnosis (1) Right-sided cerebrovascular accident (CVA) Priority: Primary Status: Acute Comments: Patient had experienced an acute right ischemic CVA resulting in left hemiparesis. Patient has had left upper extremity plegia since admission with no improvement noted during therapy. Patient's had a increase in strength to her left leg which remains paretic at 4/5 muscle strength. Patient has been able to bear weight and ambulate with assistance greater than 60 feet per therapy. Patient remains a fall risk due to poor balance and unsteady gait. Patient also experienced left facial droop and dysarthria. Patient's dysarthria has improved. She is to continue follow-up with neurology and PCP after discharge. Patient's blood pressure has been slightly elevated, requiring titration of medications to maintain a systolic less than 160. (2) CAD (coronary artery disease) Priority: Secondary Status: Chronic Comments: No acute issues during her stay of facility. Patient has denied any chest discomforts or palpitations. We will continue with current medications at time of discharge and is to follow-up with her PCP for further management Qualifiers: Coronary Disease-Associated Artery/Lesion type: unspecified vessel or lesion type [place] vs. transplanted heart: [place] heart Associated angina: without angina Qualified Code(s): I25.10 - Atherosclerotic heart disease of [place] coronary artery without angina pectoris (3) Hypertension Priority: Secondary Status: Chronic Comments: Patient has experienced occasional elevated systolic blood pressure. Medications have been titrated to maintain a systolic goal of less than 160. Patient is to continue with current discharge medications and follow-up with PCP within one week of discharge for further management Qualifiers: Hypertension type: essential hypertension Qualified Code(s): I10 - Essential (primary) hypertension Hospital course: Ms. Conklin is a 68 year old female who was admitted to inpatient rehab from [facility] status post right ischemic CVA. Patient has history of hypertension and CAD. Was only taking aspirin 81 mg and using a low-sodium diet. Patient reportedly was not taking medication due to insurance and cost issues and reportedly has not seen a primary care physician in several years. Patient developed left-sided weakness with facial droop and did not seek medical treatment until the next morning when she woke up and fell, hitting her face. Workup revealed and included right ICA and subsequent right MCA in right NOHEMY strokes. Patient was transferred to this facility with residual deficits of left extremity hemiparesis. Patient's left arm remained plegic with 0/5 muscle strength and has not improved during her stay. Patient's left leg has shown a regain strength but remains weakened at 4/5 muscle strength. Patient has been able to bear weight with left leg after several weeks of therapy and reportedly has been able to ambulate while holding onto railing for over 80 feet. Patient showed left facial droop which remains. Patient also has had dysarthria which has improved. Patient will continue her therapy to outpatient services. Patient will be established with a PCP for follow-up within 2 weeks after discharge. Patient did experience some issues with elevated blood pressure and her medications were titrated to maintain a systolic less than 160. Patient is to continue her follow-up with neurology from [facility]. Discharge discussed with: patient Time spent discussing smoking cessation with patient: 3 to 10 minutes - Time Spent with Patient Total time spent providing and/or coordinating discharge services: Time spent: Less than 30 minutes - Discharge Medications Prescriptions: No Action Aspirin 81 mg PO DAILY Carvedilol 3.125 mg PO BID Atorvastatin [Lipitor] 40 mg PO HS Lisinopril [Zestril] 40 mg PO DAILY Home Medications: Aspirin 81 mg PO DAILY 05/19/19 [History] Atorvastatin [Lipitor] 40 mg PO HS 05/19/19 [History] Carvedilol 3.125 mg PO BID 05/19/19 [History] Lisinopril [Zestril] 40 mg PO DAILY 05/19/19 [History] Allergies/Adverse Reactions: Allergy/AdvReac Type Severity Reaction Status Date / Time codeine Allergy Hives Verified 05/19/19 17:44 Date of admission: 05/19/19 17:30 Primary care physician: PCP NONE Consults: 05/19/19 17:55 Consult to Occupational Therapy [CONS] Routine Comment: eval post CVA Reason for Consult: eval for post CVA Does patient have active BEDREST order?: No Is patient medically & hemodynamically stable?: Yes Patient assessed for mobility or mobilized this visit?: No Consult to Physical Therapy [CONS] Routine Comment: eval post CVA Reason for Consult: eval post CVA Does patient have active BEDREST order?: No Is patient medically & hemodynamically stable?: Yes Patient assessed for mobility or mobilized this visit?: No Consult to Recreational Therapy [CONS] Routine Comment: Consult to Marine Service Manager [CONS] Routine Reason for SW Consult: discharge planning 05/19/19 18:02 Consult to Speech Therapy [CONS] Routine Comment: Evaluate, develop and implement POC Reason for Consult: post CVA eval needed Time Notified: 18:02 Call Completed: No 05/20/19 11:53 Consult to Psychology [CONS] Routine Consulting Provider: Archana Myers Reason for Consult: Possible depression; adjustment disorder Call Completed: No 06/10/19 09:59 Consult to Wound Care [CONS] Routine Reason for Consult: left pinky toenail, long, thick and redened around Call Completed: Yes Discharging clinician: Eugenia Velasquez - Constitutional Vitals: Temp Pulse Resp BP Pulse Ox 98.3 F 63 16 101/55 95 06/27/19 07:24 06/27/19 07:24 06/27/19 07:24 06/27/19 09:40 06/27/19 07:24 General appearance: Present: A&O X 3, pleasant, no acute distress, answers questions appropriately - Head Head exam: Present: atraumatic, normocephalic - Eye Eye exam: Present: PERRL, conjuntiva pink, sclera anicteric Pupils: Present: PERRL - Neck Neck exam general surgery: Present: supple, trachea midline. Absent: lymphadenopathy - Respiratory Respiratory exam: Present: decreased breath sounds, CTAB. Absent: accessory muscle use, rales, rhonchi, wheezes - Cardiovascular Cardiovascular exam: Present: RRR, +S1, +S2. Absent: diastolic murmur, gallop, rubs, systolic murmur - GI/Abdominal GI/Abdominal exam: Present: normal bowel sounds, soft, no peritoneal signs. Absent: distended, tenderness - Extremities Exam Extremities exam: Present: warm, radial pulses palpable and symmetrical. Absent: calf tenderness, cyanotic, pedal edema - Neurological Exam Neurological exam: Present: CN II-XII intact, oriented X3, facial droop, speech deficit. Absent: pronater drift Additional comments: Patient continues with slight left facial droop. Slight dysarthria. Left arm remains flaccid and 0/5 muscle strength. Left leg with weakness at 4/5 muscle strength. Right extremity is 5/5 muscle strength. - Skin Skin exam: Present: dry, intact - Patient Status Disposition: Home Health Service Condition: Good Functional capacity at discharge: uses cane/walker Overall status at discharge: patient is progressing back to baseline - Discharge Instructions Follow Up With: NONE,PCP [Primary Care Provider] - - Diet and Activity Activity: ambulate only with your walker, as per physical therapy, increase activity as tolerated Diet: low fat, low cholesterol, low salt diet
[2019-06-27] MEDS ORDERED: hydrALAZINE 25 MG TABLET PO PRN (12:01)
[2019-06-28] MEDS: *HR* Heparin 5,000 UNIT/ML VIAL SQ SCH (05:46)
[2019-06-28 07:06] VITALS: BP 160/71
[2019-06-28] MEDS: tiZANidine 4 MG TABLET PO SCH ×2 (08:33→13:19)
[2019-06-28] MEDS: Acetaminophen 325 MG TABLET PO PRN (08:34)
[2019-06-28] MEDS: Aspirin 81 MG TAB.CHEW PO SCH (08:34)
[2019-06-28] MEDS: Famotidine 20 MG TABLET PO SCH (08:34)
[2019-06-28] MEDS: Lisinopril 20 MG TABLET PO SCH (08:35)
--- NOTE | 2019-06-28 14:30 | Internal Med Progress Note ---
Date of Encounter: 06/28/19 Time of Encounter: 14:00 - Subjective Interval history: - Assessment and plan (1) Right-sided cerebrovascular accident (CVA) Current Visit: Yes Status: Acute Assessment and plan: Patient continues to have left upper extremity remaining flaccid due to CVA. Left lower extremity shows minimal movement on hip flexure but patient increase in strength to her left distal leg. Right extremities with 5/5 muscle strength. Patient noted to have slight slurred speech during conversation. Continued slight left facial droop. She does participate in therapy and states that she feels she has had a slight increase in strength at left leg. We will continue with current plan of care and therapy. (2) CAD (coronary artery disease) Current Visit: Yes Status: Acute Assessment and plan: No acute issues. Patient continues with a slight systolic murmur. Denies any chest discomforts or palpitations. Vital signs are stable. We will continue with current plan of care and medications. Qualifiers: Coronary Disease-Associated Artery/Lesion type: unspecified vessel or lesion type [place] vs. transplanted heart: [place] heart Associated angina: without angina Qualified Code(s): I25.10 - Atherosclerotic heart disease of [place] coronary artery without angina pectoris (3) Hypertension Current Visit: Yes Status: Acute Assessment and plan: Vital signs remained stable. We will continue with a systolic blood pressure goal of less than 160. We will continue with current medications Qualifiers: Hypertension type: essential hypertension Qualified Code(s): I10 - Essential (primary) hypertension - Subjective Interval history: pt currently feeling stronger Ready to go home today long discussion with pt and family re health course , medication follow up and home care. Scripts written and medications discussed questions answered pt snores and plans to get sleep study from her primary care. Patient states that she feels she has had a slight increase in strength to her left leg which she was able to demonstrate minimal movement approximately. Left upper extremity remains flaccid. Patient denies any other issues and states that therapy helps She will do home PT will be DC today please see discharge summary - EXAM General appearance: Present: A&O X 3, pleasant, no acute distress, appears comfortable at rest - Head Head exam: Present: atraumatic, normocephalic - Eye Eye exam: Present: PERRL, conjuntiva pink, sclera anicteric Pupils: Present: PERRL - Neck Neck exam general surgery: Present: supple, trachea midline. Absent: lymp hadenopathy - Respiratory Respiratory exam: Present: CTAB. Absent: accessory muscle use, rales, rhonchi, wheezes - Cardiovascular Cardiovascular exam: Present: RRR, +S1, +S2. Absent: diastolic murmur, gallop, rubs, systolic murmur - GI/Abdominal GI/Abdominal exam: Present: normal bowel sounds, soft, no peritoneal signs. Absent: distended, tenderness - Extremities Exam Extremities exam: Present: warm, radial pulses palpable and symmetrical. Absent: calf tenderness, cyanotic, pedal edema - Neurological Exam Neurological exam: Present: CN II-XII intact, oriented X3, facial droop, speech deficit Additional comments: Patient continues to have left facial droop and dysarthria. Left upper extremity remains flaccid. Patient shows 2/5 muscle strength on left hip flexure. Distally has 3/5 muscle strength, except for left dorsiflexion which is at 2/5. Right extremities at 5/5 muscle strength. - Constitutional Vitals: Temp Pulse Resp BP Pulse Ox 98.0 F 60 15 160/71 94 06/28/19 07:02 06/28/19 07:02 06/28/19 07:02 06/28/19 07:02 06/28/19 07:02 General appearance: Present: A&O X 3, pleasant, no acute distress, answers questions appropriately Internal Medicine: Result - Labs CBC & Chem 7: 06/16/19 11:24 06/16/19 11:24 Consult Discharge Plan - Plan Additional Instructions: Check blood pressure daily, same time of day, resting blood pressure, pcp may write rx for blood pressure monitor if needed, also needs sleep study ordered by pcp Referrals: Ty Hills Jr, MD [Non-Partnered Physician] - 09/10/19 9:25 am ([facility] [address] [place], [place] [phone]) Redd Gutierrez DPM [Partnered Physician] - 07/15/19 9:15 am ([facility] [address] [phone]) Nikki Gillespie CNP [Non-Partnered Physician] - 06/30/19 2:00 pm ([facility] Please bring list of current medications, insurance card and photo ID)
--- NOTE | 2019-07-02 09:14 | Internal Med Progress Note ---
Date of Encounter: 05/21/19 Time of Encounter: 11:00 - Assessment and plan (1) Right-sided cerebrovascular accident (CVA) Status: Acute Assessment and plan: Patient continues to have left upper extremity remaining flaccid. Left lower extremity shows minimal movement on her flexure but otherwise is extremely weak. Right extremities with 5/5 muscle strength. Patient has slightly slurred speech during conversation with continued left facial droop. She participates well in therapy and states she feels she has a slight improvement in her strength at left leg. We will continue with current plan of care. (2) CAD (coronary artery disease) Status: Chronic Assessment and plan: No acute issues. Patient continues with slight systolic murmur. She denies any chest discomfort or palpitations. Vital signs are stable. We will continue with current plan of care and medications. Qualifiers: Coronary Disease-Associated Artery/Lesion type: unspecified vessel or lesion type [place] vs. transplanted heart: [place] heart Associated angina: without angina Qualified Code(s): I25.10 - Atherosclerotic heart disease of [place] coronary artery without angina pectoris (3) Hypertension Status: Chronic Assessment and plan: Vital signs remained stable. We will continue with a systolic blood pressure goal of less than 160. We will continue with current medications. Qualifiers: Hypertension type: essential hypertension Qualified Code(s): I10 - Essential (primary) hypertension (4) Adjustment disorder with depressed mood Status: Acute (5) Pain in both knees Status: Acute Qualifiers: Chronicity: chronic Qualified Code(s): M25.561 - Pain in right knee; M25.562 - Pain in left knee; G89.29 - Other chronic pain - Subjective Interval history: Note: This dictation is being done because of information added in a properly on May 21 patient was seen that date and dictation but to clarify, this note is being dictated again. Patient is without complaint. She had a little dizziness but this was transient. She has no other dizziness or vertigo symptoms, thereafter. She is moving bowels and bladder well. She has no other issues. Patient has no complaint of chest discomfort, dyspnea, orthopnea, palpitations, nausea or vomiting, constipation or diarrhea, other changes in bowel habits, difficulty with urination, rash or itching, or other new complaints, except as mentioned above. Review of systems is otherwise negative. I discussed management of patient's care with nursing staff. - Constitutional Vitals: Temp Pulse Resp BP Pulse Ox 98.0 F 60 15 160/71 94 06/28/19 07:02 06/28/19 07:02 06/28/19 07:02 06/28/19 07:02 06/28/19 07:02 Exam: Examination: (Except as mentioned above): General: In no apparent distress. Alert and oriented 3. Nondiaphoretic. Head: Atraumatic and normocephalic. Respiratory: No use of accessory muscles. Lungs are clear throughout. Normal airflow. Cardiovascular: Regular rate and rhythm without murmur appreciated. Abdomen: Bowel sounds are normal. No hepatosplenomegaly mass or tenderness appreciated. Obese and therefore difficult to palpate deeply. Patient is examined upright in chair and this also limits exam. Extremities: No cyanosis clubbing or edema. Skin: Warm and non-diaphoretic with no new lesions noted. Neurologic: Still with dense left hemiparesis. Internal Medicine: Result - Labs CBC & Chem 7: 06/16/19 11:24 06/16/19 11:24 Consult Discharge Plan - Plan Additional Instructions: Check blood pressure daily, same time of day, resting blood pressure, pcp may write rx for blood pressure monitor if needed, also needs sleep study ordered by pcp Referrals: Ty Hills Jr, MD [Non-Partnered Physician] - 09/10/19 9:25 am ([facility] [address] [place], [place] [phone]) Redd Gutierrez DPM [Partnered Physician] - 07/15/19 9:15 am ([facility] [address] [phone]) Nikki Gillespie CNP [Non-Partnered Physician] - 06/30/19 2:00 pm ([facility] Please bring list of current medications, insurance card and photo ID)
== END 2019-06-28 14:58 | disposition home health service (06) | DRG 57 ==
LOC: INPGRE 17:30